=== PATIENT | female | born 1980 | race Caucasian/White ===

== ENCOUNTER 2016-09-22 16:07 | Inpatient (IN) | payer OTHER ==
[2016-09-23 18:22] VITALS: BMI 29.2
[2016-09-23] MEDS: Gabapentin 300 MG CAP PO SCH (20:12)
[2016-09-23] MEDS: HYDROcodone/Acetaminophen 10/325 mg Tablet PO PRN (20:22)
[2016-09-23] MEDS: oxyCODONE ER 20 MG TAB PO SCH (21:00)
[2016-09-23] MEDS: oxyCODONE ER 10 MG TAB PO SCH (21:02)
[2016-09-24] MEDS: HYDROcodone/Acetaminophen 10/325 mg Tablet PO PRN ×2 (06:18→15:13)
[2016-09-24] MEDS ORDERED: LIOTHYRONINE SODIUM 10 MCG PO SCH (09:00)
[2016-09-24] MEDS: oxyCODONE ER 10 MG TAB PO SCH ×2 (09:27→21:02)
[2016-09-24] MEDS: oxyCODONE ER 20 MG TAB PO SCH ×2 (09:29→21:01)
[2016-09-24] MEDS: FLUoxetine HCl 10 MG CAP PO SCH (09:30)
[2016-09-24] MEDS: Gabapentin 300 MG CAP PO SCH ×3 (09:30→21:01)
[2016-09-24] MEDS: Levothyroxine Sodium 88 MCG TAB PO SCH (09:31)
[2016-09-24] MEDS ORDERED: LIOTHYRONINE SODIUM PO SCH (11:00)
[2016-09-24] MEDS: Cyclobenzaprine 10 MG TAB PO PRN ×2 (11:57→23:07)
[2016-09-24] MEDS: Enoxaparin Sodium 40 MG/0.4 ML SYRINGE SC SCH (17:49)
[2016-09-24] MEDS: Diazepam 5 MG TAB PO PRN (18:18)
[2016-09-25] MEDS: HYDROcodone/Acetaminophen 10/325 mg Tablet PO PRN ×3 (01:37→18:03)
[2016-09-25] MEDS: Cyclobenzaprine 10 MG TAB PO PRN ×3 (05:56→23:21)
[2016-09-25] MEDS: LIOTHYRONINE SODIUM PO SCH (05:56)
[2016-09-25] MEDS: Diazepam 5 MG TAB PO PRN (07:17)
[2016-09-25] MEDS: Docusate 100 MG CAP PO SCH (07:17)
[2016-09-25] MEDS: FLUoxetine HCl 10 MG CAP PO SCH (08:41)
[2016-09-25] MEDS: oxyCODONE ER 10 MG TAB PO SCH ×2 (08:42→20:58)
[2016-09-25] MEDS: Gabapentin 300 MG CAP PO SCH ×3 (08:42→20:58)
[2016-09-25] MEDS: Levothyroxine Sodium 88 MCG TAB PO SCH (08:42)
[2016-09-25] MEDS: oxyCODONE ER 20 MG TAB PO SCH ×2 (08:43→21:00)
[2016-09-25] MEDS: Enoxaparin Sodium 40 MG/0.4 ML SYRINGE SC SCH (18:04)
[2016-09-26] MEDS: HYDROcodone/Acetaminophen 10/325 mg Tablet PO PRN ×4 (00:06→17:50)
[2016-09-26] MEDS: LIOTHYRONINE SODIUM PO SCH (06:09)
[2016-09-26 07:28] LABS: #Basophils 0.1 thou/uL (0.0-0.2); #Eosinphils 0.2 thou/uL (0.0-0.7); #Lymphocytes 1.9 thou/uL (1.20-3.40); #Monocytes 0.5 thou/uL (0.11-0.59); %Basophils 0.8 % (0.0-1.0); %Eosinophils 2.3 % (0.0-10.0); %Lymphocytes 28.3 % (21.0-51.0); %Neutrophils 60.6 % (42.0-75.0); Hemoglobin 10.9 g/dL (12.0-16.0); Mean Corpuscular HGB CONC 30.9 g/dL (32.0-36.0); Mean Corpuscular Hemoglobin 26.6 pg (27.0-31.0); Mean Corpuscular Volume 85.8 fl (81.0-99.0); Mean Platelet Volume 7.4 fL (7.4-10.4); Platelet Count 273 thou/uL (130-400); RBC Distribution Width 13.7 % (11.5-14.5); Red Blood Cell (RBC) Count 4.12 mill/uL (4.20-5.40); White Blood Cell (WBC) Count 6.7 thou/uL (4.8-10.8)
[2016-09-26 07:35] LABS: ALT (SGPT) 89 U/L (8-55); AST (SGOT) 34 U/L (5-34); Albumin 3.2 g/dL (3.5-5.0); Alkaline Phosphatase 104 U/L (40-150); Anion Gap 14 mmol/L (10-20); BUN (Urea Nitrogen) 9 mg/dL (7.0-18.7); Bilirubin, Total 0.4 mg/dL (0.2-1.2); Calc. Creatinine Clearance 149 mL/min (70-130); Calcium 8.6 mg/dL (7.8-10.44); Carbon Dioxide 30 mmol/L (22-29); Chloride 98 mmol/L (98-107); Estimated GFR-MDRD Greater than 90; Globulin 3.1 g/dL (2.4-3.5); Glucose 97 mg/dL (70-105); Potassium 4.6 mmol/L (3.5-5.1); Protein, Total 6.3 g/dL (6.0-8.3); Sodium 137 mmol/L (136-145)
[2016-09-26] MEDS: Docusate 100 MG CAP PO SCH (07:47)
[2016-09-26] MEDS: Cyclobenzaprine 10 MG TAB PO PRN ×2 (07:47→21:42)
[2016-09-26] MEDS: FLUoxetine HCl 10 MG CAP PO SCH (08:55)
[2016-09-26] MEDS: oxyCODONE ER 20 MG TAB PO SCH ×2 (08:55→20:55)
[2016-09-26] MEDS: Levothyroxine Sodium 88 MCG TAB PO SCH (08:56)
[2016-09-26] MEDS: Gabapentin 300 MG CAP PO SCH ×3 (08:56→20:55)
[2016-09-26] MEDS: oxyCODONE ER 10 MG TAB PO SCH ×2 (08:56→20:56)
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
[2016-09-26] MEDS: Diazepam 5 MG TAB PO PRN (14:52)
[2016-09-26] MEDS: Enoxaparin Sodium 40 MG/0.4 ML SYRINGE SC SCH (17:48)
[2016-09-27] MEDS: HYDROcodone/Acetaminophen 10/325 mg Tablet PO PRN ×4 (00:06→18:14)
[2016-09-27] MEDS: Diazepam 5 MG TAB PO PRN ×2 (05:27→22:54)
[2016-09-27] MEDS: LIOTHYRONINE SODIUM PO SCH (05:31)
[2016-09-27] MEDS: oxyCODONE ER 10 MG TAB PO SCH ×2 (08:26→21:08)
[2016-09-27] MEDS: Levothyroxine Sodium 88 MCG TAB PO SCH (08:26)
[2016-09-27] MEDS: oxyCODONE ER 20 MG TAB PO SCH ×2 (08:27→21:07)
[2016-09-27] MEDS: Polyethylene Glycol 3350 17 GM Packet PO SCH (08:28)
[2016-09-27] MEDS: Gabapentin 300 MG CAP PO SCH ×3 (08:28→21:06)
[2016-09-27] MEDS: FLUoxetine HCl 10 MG CAP PO SCH (08:28)
[2016-09-27] MEDS: Docusate 100 MG CAP PO SCH (08:28)
[2016-09-27] MEDS: Cyclobenzaprine 10 MG TAB PO PRN (11:03)
[2016-09-27] MEDS: Bisacodyl 10 MG SUPP PR PRN ×2 (14:11→22:26)
[2016-09-27] MEDS: Ondansetron ODT 4 MG TAB PO PRN (14:11)
[2016-09-27] MEDS ORDERED: SUMAtriptan Succinate 6 MG/0.5 ML VIAL ONE (16:33)
[2016-09-27] MEDS: SUMAtriptan Succinate 6 MG/0.5 ML VIAL SC PRN (16:40)
[2016-09-27] MEDS: Enoxaparin Sodium 40 MG/0.4 ML SYRINGE SC SCH (17:59)
[2016-09-28] MEDS: HYDROcodone/Acetaminophen 10/325 mg Tablet PO PRN ×3 (02:02→18:11)
[2016-09-28] MEDS: Cyclobenzaprine 10 MG TAB PO PRN ×2 (05:25→13:28)
[2016-09-28] MEDS: LIOTHYRONINE SODIUM PO SCH (05:26)
[2016-09-28] MEDS ORDERED: SUMAtriptan Succinate 6 MG/0.5 ML VIAL ONE (05:56)
[2016-09-28] MEDS: SUMAtriptan Succinate 6 MG/0.5 ML VIAL SC PRN (05:59)
[2016-09-28] MEDS: Levothyroxine Sodium 88 MCG TAB PO SCH (09:30)
[2016-09-28] MEDS: FLUoxetine HCl 10 MG CAP PO SCH (09:30)
[2016-09-28] MEDS: Gabapentin 300 MG CAP PO SCH ×3 (09:31→21:43)
[2016-09-28] MEDS: Docusate 100 MG CAP PO SCH (09:31)
[2016-09-28] MEDS: oxyCODONE ER 10 MG TAB PO SCH ×2 (09:32→21:45)
[2016-09-28] MEDS: oxyCODONE ER 20 MG TAB PO SCH ×2 (09:34→21:43)
[2016-09-28] MEDS: Polyethylene Glycol 3350 17 GM Packet PO SCH (09:35)
[2016-09-28] MEDS: Milk Of Magnesia 30 ML UDCUP PO PRN (11:54)
[2016-09-28] MEDS: Diazepam 5 MG TAB PO PRN (13:28)
[2016-09-28] MEDS ORDERED: Magnesium Citrate 300 ML BOT PO PRN (17:28)
[2016-09-28] MEDS: Enoxaparin Sodium 40 MG/0.4 ML SYRINGE SC SCH (18:11)
[2016-09-29] MEDS: HYDROcodone/Acetaminophen 10/325 mg Tablet PO PRN ×2 (03:03→14:28)
[2016-09-29] MEDS: LIOTHYRONINE SODIUM PO SCH (05:52)
[2016-09-29] MEDS: oxyCODONE ER 10 MG TAB PO SCH ×2 (08:14→21:14)
[2016-09-29] MEDS: oxyCODONE ER 20 MG TAB PO SCH ×2 (08:16→21:13)
[2016-09-29] MEDS: Gabapentin 300 MG CAP PO SCH ×3 (08:23→21:12)
[2016-09-29] MEDS: Diazepam 5 MG TAB PO PRN ×2 (08:26→17:57)
[2016-09-29] MEDS: Cyclobenzaprine 10 MG TAB PO PRN ×2 (08:26→17:57)
[2016-09-29] MEDS: FLUoxetine HCl 10 MG CAP PO SCH (08:27)
[2016-09-29] MEDS: Docusate 100 MG CAP PO SCH (14:29)
[2016-09-29] MEDS: Polyethylene Glycol 3350 17 GM Packet PO SCH (14:44)
[2016-09-29] MEDS: Levothyroxine Sodium 88 MCG TAB PO SCH (14:47)
[2016-09-29] MEDS: Enoxaparin Sodium 40 MG/0.4 ML SYRINGE SC SCH (17:49)
[2016-09-30] MEDS: HYDROcodone/Acetaminophen 10/325 mg Tablet PO PRN ×2 (00:25→13:39)
[2016-09-30] MEDS: LIOTHYRONINE SODIUM PO SCH (05:36)
[2016-09-30] MEDS: Levothyroxine Sodium 88 MCG TAB PO SCH (05:44)
[2016-09-30] MEDS: FLUoxetine HCl 10 MG CAP PO SCH (08:36)
[2016-09-30] MEDS: Gabapentin 300 MG CAP PO SCH ×3 (08:37→21:50)
[2016-09-30] MEDS: oxyCODONE ER 20 MG TAB PO SCH ×2 (08:37→21:51)
[2016-09-30] MEDS: Docusate 100 MG CAP PO SCH (08:37)
[2016-09-30] MEDS: Polyethylene Glycol 3350 17 GM Packet PO SCH (08:37)
[2016-09-30] MEDS: oxyCODONE ER 10 MG TAB PO SCH ×2 (08:38→21:50)
[2016-09-30] MEDS: Cyclobenzaprine 10 MG TAB PO PRN (13:39)
[2016-09-30] MEDS: Enoxaparin Sodium 40 MG/0.4 ML SYRINGE SC SCH (18:26)
[2016-09-30] MEDS: Diazepam 5 MG TAB PO PRN (22:00)
[2016-10-01] MEDS: Milk Of Magnesia 30 ML UDCUP PO PRN ×2 (00:39→21:17)
[2016-10-01] MEDS: Cyclobenzaprine 10 MG TAB PO PRN ×2 (03:38→13:32)
[2016-10-01] MEDS: HYDROcodone/Acetaminophen 10/325 mg Tablet PO PRN ×2 (03:38→13:32)
[2016-10-01] MEDS: Levothyroxine Sodium 88 MCG TAB PO SCH (05:51)
[2016-10-01] MEDS: LIOTHYRONINE SODIUM PO SCH (05:51)
[2016-10-01] MEDS: Polyethylene Glycol 3350 17 GM Packet PO SCH (09:16)
[2016-10-01] MEDS: FLUoxetine HCl 10 MG CAP PO SCH (09:16)
[2016-10-01] MEDS: oxyCODONE ER 10 MG TAB PO SCH ×2 (09:17→21:18)
[2016-10-01] MEDS: Docusate 100 MG CAP PO SCH (09:17)
[2016-10-01] MEDS: Gabapentin 300 MG CAP PO SCH ×3 (09:17→21:17)
[2016-10-01] MEDS: oxyCODONE ER 20 MG TAB PO SCH ×2 (09:19→21:17)
[2016-10-01] MEDS: Diazepam 5 MG TAB PO PRN (16:43)
[2016-10-01] MEDS: Enoxaparin Sodium 40 MG/0.4 ML SYRINGE SC SCH (17:29)
[2016-10-02] MEDS: Cyclobenzaprine 10 MG TAB PO PRN ×2 (04:06→14:07)
[2016-10-02] MEDS: HYDROcodone/Acetaminophen 10/325 mg Tablet PO PRN ×2 (04:06→14:07)
[2016-10-02] MEDS: Levothyroxine Sodium 88 MCG TAB PO SCH (06:02)
[2016-10-02] MEDS: LIOTHYRONINE SODIUM PO SCH (06:02)
[2016-10-02] MEDS: Docusate 100 MG CAP PO SCH (08:31)
[2016-10-02] MEDS: Polyethylene Glycol 3350 17 GM Packet PO SCH (08:31)
[2016-10-02] MEDS: FLUoxetine HCl 10 MG CAP PO SCH (08:32)
[2016-10-02] MEDS: oxyCODONE ER 10 MG TAB PO SCH ×2 (08:33→21:31)
[2016-10-02] MEDS: Gabapentin 300 MG CAP PO SCH ×3 (08:33→21:29)
[2016-10-02] MEDS: oxyCODONE ER 20 MG TAB PO SCH ×2 (08:34→21:30)
[2016-10-02] MEDS: Enoxaparin Sodium 40 MG/0.4 ML SYRINGE SC SCH (17:47)
[2016-10-02] MEDS: Bisacodyl 10 MG SUPP PR PRN (20:23)
[2016-10-03] MEDS: HYDROcodone/Acetaminophen 10/325 mg Tablet PO PRN ×2 (01:50→12:25)
[2016-10-03] MEDS: Cyclobenzaprine 10 MG TAB PO PRN ×2 (01:50→12:26)
[2016-10-03] MEDS: LIOTHYRONINE SODIUM PO SCH (06:02)
[2016-10-03] MEDS: Levothyroxine Sodium 88 MCG TAB PO SCH (06:02)
[2016-10-03] MEDS: FLUoxetine HCl 10 MG CAP PO SCH (09:44)
[2016-10-03] MEDS: Docusate 100 MG CAP PO SCH (09:44)
[2016-10-03] MEDS: oxyCODONE ER 20 MG TAB PO SCH ×2 (09:45→21:09)
[2016-10-03] MEDS: Gabapentin 300 MG CAP PO SCH ×3 (09:45→21:06)
[2016-10-03] MEDS: oxyCODONE ER 10 MG TAB PO SCH ×2 (09:46→21:06)
[2016-10-03] MEDS: Polyethylene Glycol 3350 17 GM Packet PO SCH (09:47)
[2016-10-03] MEDS: Enoxaparin Sodium 40 MG/0.4 ML SYRINGE SC SCH (18:11)
[2016-10-04] MEDS: HYDROcodone/Acetaminophen 10/325 mg Tablet PO PRN ×3 (04:09→23:46)
[2016-10-04] MEDS: Cyclobenzaprine 10 MG TAB PO PRN ×3 (04:10→23:45)
[2016-10-04] MEDS: Levothyroxine Sodium 88 MCG TAB PO SCH (05:43)
[2016-10-04] MEDS: LIOTHYRONINE SODIUM PO SCH (05:44)
[2016-10-04] MEDS: Docusate 100 MG CAP PO SCH (08:41)
[2016-10-04] MEDS: oxyCODONE ER 20 MG TAB PO SCH ×2 (08:41→22:02)
[2016-10-04] MEDS: FLUoxetine HCl 10 MG CAP PO SCH (08:41)
[2016-10-04] MEDS: oxyCODONE ER 10 MG TAB PO SCH ×2 (08:42→21:58)
[2016-10-04] MEDS: Polyethylene Glycol 3350 17 GM Packet PO SCH (08:43)
[2016-10-04] MEDS: Gabapentin 300 MG CAP PO SCH ×3 (08:43→21:58)
[2016-10-04] MEDS: Enoxaparin Sodium 40 MG/0.4 ML SYRINGE SC SCH (18:08)
[2016-10-05] MEDS: Acetaminophen 500 MG TAB PO PRN (05:20)
[2016-10-05] MEDS: LIOTHYRONINE SODIUM PO SCH (05:20)
[2016-10-05] MEDS: Levothyroxine Sodium 88 MCG TAB PO SCH (05:20)
[2016-10-05] MEDS: oxyCODONE ER 10 MG TAB PO SCH ×2 (08:49→21:32)
[2016-10-05] MEDS: Polyethylene Glycol 3350 17 GM Packet PO SCH (08:49)
[2016-10-05] MEDS: FLUoxetine HCl 10 MG CAP PO SCH (08:49)
[2016-10-05] MEDS: Gabapentin 300 MG CAP PO SCH ×3 (08:50→21:31)
[2016-10-05] MEDS: oxyCODONE ER 20 MG TAB PO SCH ×2 (08:50→21:35)
[2016-10-05] MEDS: Docusate 100 MG CAP PO SCH (08:51)
[2016-10-05] MEDS: HYDROcodone/Acetaminophen 10/325 mg Tablet PO PRN ×2 (13:31→20:50)
[2016-10-05] MEDS: Diazepam 5 MG TAB PO PRN (13:31)
[2016-10-05] MEDS: Cyclobenzaprine 10 MG TAB PO PRN ×2 (13:31→23:58)
[2016-10-05] MEDS: Enoxaparin Sodium 40 MG/0.4 ML SYRINGE SC SCH (18:20)
[2016-10-06] MEDS: LIOTHYRONINE SODIUM PO SCH (06:04)
[2016-10-06] MEDS: Levothyroxine Sodium 88 MCG TAB PO SCH (06:04)
[2016-10-06] MEDS: Polyethylene Glycol 3350 17 GM Packet PO SCH (08:49)
[2016-10-06] MEDS: FLUoxetine HCl 10 MG CAP PO SCH (08:49)
[2016-10-06] MEDS: Gabapentin 300 MG CAP PO SCH ×3 (08:50→21:20)
[2016-10-06] MEDS: Docusate 100 MG CAP PO SCH (08:50)
[2016-10-06] MEDS: oxyCODONE ER 20 MG TAB PO SCH ×2 (08:51→21:20)
[2016-10-06] MEDS: oxyCODONE ER 10 MG TAB PO SCH ×2 (08:52→21:21)
[2016-10-06] MEDS ORDERED: Sodium Chloride 0.9% 0 ML ONE (11:19)
[2016-10-06] MEDS: Diazepam 5 MG TAB PO PRN (12:20)
[2016-10-06] MEDS: HYDROcodone/Acetaminophen 10/325 mg Tablet PO PRN (12:20)
[2016-10-06] MEDS: Cyclobenzaprine 10 MG TAB PO PRN (12:21)
[2016-10-06] MEDS: Enoxaparin Sodium 40 MG/0.4 ML SYRINGE SC SCH (18:44)
[2016-10-07] MEDS: HYDROcodone/Acetaminophen 10/325 mg Tablet PO PRN ×3 (01:43→23:52)
[2016-10-07] MEDS: Cyclobenzaprine 10 MG TAB PO PRN ×3 (01:43→23:52)
[2016-10-07] MEDS: LIOTHYRONINE SODIUM PO SCH (06:07)
[2016-10-07] MEDS: Levothyroxine Sodium 88 MCG TAB PO SCH (06:07)
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
[2016-10-07] MEDS: oxyCODONE ER 10 MG TAB PO SCH ×2 (10:12→21:06)
[2016-10-07] MEDS: oxyCODONE ER 20 MG TAB PO SCH ×2 (10:17→21:04)
[2016-10-07] MEDS: Gabapentin 300 MG CAP PO SCH ×3 (10:18→21:04)
[2016-10-07] MEDS: Docusate 100 MG CAP PO SCH (10:18)
[2016-10-07] MEDS: FLUoxetine HCl 10 MG CAP PO SCH (10:18)
[2016-10-07] MEDS: Polyethylene Glycol 3350 17 GM Packet PO SCH (10:19)
[2016-10-07] MEDS: Diazepam 5 MG TAB PO PRN ×2 (13:03→23:52)
[2016-10-07] MEDS ORDERED: Cephalexin 250 MG CAP PO SCH (18:00)
[2016-10-07] MEDS: Cephalexin 250 MG CAP PO SCH ×2 (19:01→23:52)
[2016-10-07] MEDS: Enoxaparin Sodium 40 MG/0.4 ML SYRINGE SC SCH (19:02)
[2016-10-08] MEDS: Levothyroxine Sodium 88 MCG TAB PO SCH (06:18)
[2016-10-08] MEDS: Cephalexin 250 MG CAP PO SCH ×4 (06:18→23:38)
[2016-10-08] MEDS: LIOTHYRONINE SODIUM PO SCH (06:19)
[2016-10-08] MEDS: HYDROcodone/Acetaminophen 10/325 mg Tablet PO PRN ×3 (06:36→23:36)
[2016-10-08] MEDS: oxyCODONE ER 20 MG TAB PO SCH ×2 (08:25→20:42)
[2016-10-08] MEDS: oxyCODONE ER 10 MG TAB PO SCH ×2 (08:26→20:40)
[2016-10-08] MEDS: Gabapentin 300 MG CAP PO SCH ×3 (08:27→20:40)
[2016-10-08] MEDS: Docusate 100 MG CAP PO SCH (08:27)
[2016-10-08] MEDS: FLUoxetine HCl 10 MG CAP PO SCH (08:27)
[2016-10-08] MEDS: Polyethylene Glycol 3350 17 GM Packet PO SCH (08:27)
[2016-10-08] MEDS: Cyclobenzaprine 10 MG TAB PO PRN ×2 (12:28→23:38)
[2016-10-08] MEDS: Diazepam 5 MG TAB PO PRN ×2 (12:28→23:38)
[2016-10-08] MEDS: Enoxaparin Sodium 40 MG/0.4 ML SYRINGE SC SCH (17:49)
[2016-10-09] MEDS: LIOTHYRONINE SODIUM PO SCH (06:08)
[2016-10-09] MEDS: Levothyroxine Sodium 88 MCG TAB PO SCH (06:08)
[2016-10-09] MEDS: Cephalexin 250 MG CAP PO SCH ×4 (06:08→23:57)
[2016-10-09] MEDS: HYDROcodone/Acetaminophen 10/325 mg Tablet PO PRN ×4 (06:09→23:58)
[2016-10-09] MEDS: Docusate 100 MG CAP PO SCH (09:38)
[2016-10-09] MEDS: FLUoxetine HCl 10 MG CAP PO SCH (09:38)
[2016-10-09] MEDS: oxyCODONE ER 10 MG TAB PO SCH ×2 (09:39→20:50)
[2016-10-09] MEDS: Gabapentin 300 MG CAP PO SCH ×3 (09:39→20:50)
[2016-10-09] MEDS: oxyCODONE ER 20 MG TAB PO SCH ×2 (09:42→20:51)
[2016-10-09] MEDS: Polyethylene Glycol 3350 17 GM Packet PO SCH (09:42)
[2016-10-09] MEDS: Cyclobenzaprine 10 MG TAB PO PRN ×2 (12:15→23:57)
[2016-10-09] MEDS: Diazepam 5 MG TAB PO PRN ×2 (12:15→23:58)
[2016-10-09] MEDS: Enoxaparin Sodium 40 MG/0.4 ML SYRINGE SC SCH (17:57)
[2016-10-10] MEDS: LIOTHYRONINE SODIUM PO SCH (06:01)
[2016-10-10] MEDS: HYDROcodone/Acetaminophen 10/325 mg Tablet PO PRN ×3 (06:02→23:51)
[2016-10-10] MEDS: Cephalexin 250 MG CAP PO SCH ×4 (06:02→23:53)
[2016-10-10] MEDS: Levothyroxine Sodium 88 MCG TAB PO SCH (06:02)
[2016-10-10] MEDS: oxyCODONE ER 10 MG TAB PO SCH ×2 (08:48→20:56)
[2016-10-10] MEDS: FLUoxetine HCl 10 MG CAP PO SCH (08:49)
[2016-10-10] MEDS: oxyCODONE ER 20 MG TAB PO SCH ×2 (08:49→20:54)
[2016-10-10] MEDS: Polyethylene Glycol 3350 17 GM Packet PO SCH (08:50)
[2016-10-10] MEDS: Gabapentin 300 MG CAP PO SCH ×3 (08:50→20:54)
[2016-10-10] MEDS: Docusate 100 MG CAP PO SCH (08:50)
[2016-10-10] MEDS: Cyclobenzaprine 10 MG TAB PO PRN ×2 (12:07→23:53)
[2016-10-10] MEDS: Diazepam 5 MG TAB PO PRN ×2 (12:07→23:53)
[2016-10-10] MEDS: Enoxaparin Sodium 40 MG/0.4 ML SYRINGE SC SCH (18:15)
[2016-10-11] MEDS: Cephalexin 250 MG CAP PO SCH ×3 (06:13→17:33)
[2016-10-11] MEDS: Levothyroxine Sodium 88 MCG TAB PO SCH (06:14)
[2016-10-11] MEDS: LIOTHYRONINE SODIUM PO SCH (06:14)
[2016-10-11] MEDS: HYDROcodone/Acetaminophen 10/325 mg Tablet PO PRN ×3 (06:15→17:59)
[2016-10-11] MEDS: oxyCODONE ER 10 MG TAB PO SCH ×2 (08:42→21:11)
[2016-10-11] MEDS: oxyCODONE ER 20 MG TAB PO SCH ×2 (08:43→21:10)
[2016-10-11] MEDS: FLUoxetine HCl 10 MG CAP PO SCH (08:45)
[2016-10-11] MEDS: Docusate 100 MG CAP PO SCH (08:46)
[2016-10-11] MEDS: Gabapentin 300 MG CAP PO SCH ×3 (08:46→21:10)
[2016-10-11] MEDS: Polyethylene Glycol 3350 17 GM Packet PO SCH (08:47)
[2016-10-11] MEDS: Diazepam 5 MG TAB PO PRN (11:53)
[2016-10-11] MEDS: Cyclobenzaprine 10 MG TAB PO PRN (11:58)
[2016-10-11] MEDS: Enoxaparin Sodium 40 MG/0.4 ML SYRINGE SC SCH (17:33)
[2016-10-12] MEDS: Diazepam 5 MG TAB PO PRN ×3 (00:01→23:11)
[2016-10-12] MEDS: HYDROcodone/Acetaminophen 10/325 mg Tablet PO PRN ×4 (00:01→23:09)
[2016-10-12] MEDS: Cyclobenzaprine 10 MG TAB PO PRN ×3 (00:01→23:12)
[2016-10-12] MEDS: Cephalexin 250 MG CAP PO SCH ×5 (00:01→23:09)
[2016-10-12] MEDS: Levothyroxine Sodium 88 MCG TAB PO SCH (05:59)
[2016-10-12] MEDS: LIOTHYRONINE SODIUM PO SCH (06:00)
[2016-10-12] MEDS: Polyethylene Glycol 3350 17 GM Packet PO SCH (09:13)
[2016-10-12] MEDS: Docusate 100 MG CAP PO SCH (09:13)
[2016-10-12] MEDS: Gabapentin 300 MG CAP PO SCH ×3 (09:14→21:05)
[2016-10-12] MEDS: FLUoxetine HCl 10 MG CAP PO SCH (09:14)
[2016-10-12] MEDS: oxyCODONE ER 20 MG TAB PO SCH ×2 (09:15→21:05)
[2016-10-12] MEDS: oxyCODONE ER 10 MG TAB PO SCH ×2 (09:16→21:04)
[2016-10-12] MEDS: Enoxaparin Sodium 40 MG/0.4 ML SYRINGE SC SCH (18:12)
[2016-10-12] MEDS: Zolpidem Tartrate 5 MG TAB PO SCH (22:18)
[2016-10-13] MEDS: Cephalexin 250 MG CAP PO SCH ×4 (05:55→23:07)
[2016-10-13] MEDS: Levothyroxine Sodium 88 MCG TAB PO SCH (05:55)
[2016-10-13] MEDS: LIOTHYRONINE SODIUM PO SCH (05:56)
[2016-10-13] MEDS: oxyCODONE ER 20 MG TAB PO SCH ×2 (11:00→21:52)
[2016-10-13] MEDS: FLUoxetine HCl 10 MG CAP PO SCH (11:00)
[2016-10-13] MEDS: Gabapentin 300 MG CAP PO SCH ×3 (11:01→21:50)
[2016-10-13] MEDS: Polyethylene Glycol 3350 17 GM Packet PO SCH (11:02)
[2016-10-13] MEDS: oxyCODONE ER 10 MG TAB PO SCH ×2 (11:02→21:51)
[2016-10-13] MEDS: Ondansetron ODT 4 MG TAB PO PRN (11:37)
[2016-10-13] MEDS: Docusate 100 MG CAP PO SCH (13:15)
[2016-10-13] MEDS: Diazepam 5 MG TAB PO PRN ×2 (13:16→23:07)
[2016-10-13] MEDS: Cyclobenzaprine 10 MG TAB PO PRN ×2 (13:16→23:07)
[2016-10-13] MEDS: HYDROcodone/Acetaminophen 10/325 mg Tablet PO PRN ×2 (13:17→23:08)
[2016-10-13] MEDS ORDERED: SUMAtriptan Succinate 6 MG/0.5 ML VIAL ONE ×2 (13:32→16:44)
[2016-10-13] MEDS: SUMAtriptan Succinate 6 MG/0.5 ML VIAL SC PRN ×2 (13:34→16:46)
--- NOTE | 2016-10-13 16:13 | RAD ---
LUMBAR SPINE THREE VIEWS: Date: 10-13-16 FINDINGS: The recent spine MRI report was reviewed. The patient has had a posterior fusion with pedicle screws that span L1 through L3. There is a compr ession burst type fracture of the L2 vertebral body. The disc spaces are all normal in height. There is curvature of the spine convex left. The SI joints are symmetrical. An IUD is noted in place. IMPRESSION: Expected post-operative changes. POS: HOME
[2016-10-13] MEDS: Enoxaparin Sodium 40 MG/0.4 ML SYRINGE SC SCH (18:40)
[2016-10-13] MEDS: Zolpidem Tartrate 5 MG TAB PO SCH (21:50)
[2016-10-14] MEDS ORDERED: Cephalexin 250 MG CAP ONE (04:47)
[2016-10-14] MEDS: Cephalexin 250 MG CAP PO SCH ×4 (05:37→23:01)
[2016-10-14] MEDS: LIOTHYRONINE SODIUM PO SCH (05:38)
[2016-10-14] MEDS: Levothyroxine Sodium 88 MCG TAB PO SCH (05:38)
[2016-10-14] MEDS: Docusate 100 MG CAP PO SCH (08:40)
[2016-10-14] MEDS: oxyCODONE ER 20 MG TAB PO SCH ×2 (08:40→21:53)
[2016-10-14] MEDS: oxyCODONE ER 10 MG TAB PO SCH ×2 (08:41→21:51)
[2016-10-14] MEDS: FLUoxetine HCl 10 MG CAP PO SCH (08:41)
[2016-10-14] MEDS: Gabapentin 300 MG CAP PO SCH ×3 (08:42→21:51)
[2016-10-14] MEDS: Ondansetron ODT 4 MG TAB PO PRN (10:00)
[2016-10-14] MEDS: HYDROcodone/Acetaminophen 10/325 mg Tablet PO PRN ×3 (10:00→23:02)
[2016-10-14] MEDS: Diazepam 5 MG TAB PO PRN ×3 (10:01→23:01)
[2016-10-14] MEDS: Cyclobenzaprine 10 MG TAB PO PRN ×3 (10:01→23:02)
[2016-10-14] MEDS: Polyethylene Glycol 3350 17 GM Packet PO SCH (12:30)
[2016-10-14] MEDS: SUMAtriptan Succinate 6 MG/0.5 ML VIAL SC PRN (12:30)
[2016-10-14] MEDS: Enoxaparin Sodium 40 MG/0.4 ML SYRINGE SC SCH (18:38)
[2016-10-14] MEDS: Zolpidem Tartrate 5 MG TAB PO SCH (21:50)
[2016-10-15] MEDS: Cephalexin 250 MG CAP PO SCH ×4 (05:38→23:07)
[2016-10-15] MEDS: LIOTHYRONINE SODIUM PO SCH (05:38)
[2016-10-15] MEDS: Levothyroxine Sodium 88 MCG TAB PO SCH (05:38)
[2016-10-15] MEDS: oxyCODONE ER 10 MG TAB PO SCH ×2 (08:43→21:03)
[2016-10-15] MEDS: Polyethylene Glycol 3350 17 GM Packet PO SCH (08:43)
[2016-10-15] MEDS: FLUoxetine HCl 10 MG CAP PO SCH (08:44)
[2016-10-15] MEDS: Gabapentin 300 MG CAP PO SCH ×3 (08:44→21:03)
[2016-10-15] MEDS: Docusate 100 MG CAP PO SCH (08:44)
[2016-10-15] MEDS: oxyCODONE ER 20 MG TAB PO SCH ×2 (08:45→21:02)
[2016-10-15] MEDS: HYDROcodone/Acetaminophen 10/325 mg Tablet PO PRN ×2 (12:16→23:09)
[2016-10-15] MEDS: Diazepam 5 MG TAB PO PRN ×2 (12:16→23:08)
[2016-10-15] MEDS: Cyclobenzaprine 10 MG TAB PO PRN ×2 (12:17→23:08)
[2016-10-15] MEDS: SUMAtriptan Succinate 6 MG/0.5 ML VIAL SC PRN (14:38)
[2016-10-15] MEDS: Enoxaparin Sodium 40 MG/0.4 ML SYRINGE SC SCH (18:51)
[2016-10-15] MEDS: Nystatin Powder 15 GM BOT TOP PRN (21:04)
[2016-10-15] MEDS: Zolpidem Tartrate 5 MG TAB PO SCH (23:08)
[2016-10-16] MEDS: Cephalexin 250 MG CAP PO SCH ×4 (05:52→22:10)
[2016-10-16] MEDS: Levothyroxine Sodium 88 MCG TAB PO SCH (05:53)
[2016-10-16] MEDS: LIOTHYRONINE SODIUM PO SCH (05:53)
[2016-10-16] MEDS: Gabapentin 300 MG CAP PO SCH ×3 (12:05→21:27)
[2016-10-16] MEDS: FLUoxetine HCl 10 MG CAP PO SCH (12:05)
[2016-10-16] MEDS: Docusate 100 MG CAP PO SCH (12:05)
[2016-10-16] MEDS: oxyCODONE ER 20 MG TAB PO SCH ×2 (12:06→21:24)
[2016-10-16] MEDS: oxyCODONE ER 10 MG TAB PO SCH ×2 (12:07→21:26)
[2016-10-16] MEDS: Polyethylene Glycol 3350 17 GM Packet PO SCH (12:11)
[2016-10-16] MEDS: HYDROcodone/Acetaminophen 10/325 mg Tablet PO PRN ×2 (14:44→22:12)
[2016-10-16] MEDS: Cyclobenzaprine 10 MG TAB PO PRN ×2 (14:45→22:10)
[2016-10-16] MEDS: Diazepam 5 MG TAB PO PRN ×2 (14:45→22:10)
[2016-10-16] MEDS: Enoxaparin Sodium 40 MG/0.4 ML SYRINGE SC SCH (18:03)
[2016-10-16] MEDS: Nystatin Powder 15 GM BOT TOP PRN (18:07)
[2016-10-16] MEDS: Zolpidem Tartrate 5 MG TAB PO SCH (22:12)
[2016-10-17] MEDS: Cephalexin 250 MG CAP PO SCH ×3 (05:45→18:13)
[2016-10-17] MEDS: Levothyroxine Sodium 88 MCG TAB PO SCH (05:45)
[2016-10-17] MEDS: LIOTHYRONINE SODIUM PO SCH (05:45)
[2016-10-17] MEDS: Polyethylene Glycol 3350 17 GM Packet PO SCH (08:15)
[2016-10-17] MEDS: Multivitamin W/ Minerals 1 TAB PO SCH (08:15)
[2016-10-17] MEDS: Gabapentin 300 MG CAP PO SCH ×3 (08:15→21:53)
[2016-10-17] MEDS: oxyCODONE ER 10 MG TAB PO SCH ×2 (08:16→21:54)
[2016-10-17] MEDS: oxyCODONE ER 20 MG TAB PO SCH ×2 (08:17→21:55)
[2016-10-17] MEDS: Docusate 100 MG CAP PO SCH (08:18)
[2016-10-17] MEDS: Ferrous Sulfate 325 MG TAB PO SCH (08:18)
[2016-10-17] MEDS: Cholecalciferol (Vitamin D3) 400 UNITS TAB PO SCH (08:24)
[2016-10-17] MEDS: FLUoxetine HCl 10 MG CAP PO SCH (08:25)
[2016-10-17] MEDS: Diazepam 5 MG TAB PO PRN ×2 (11:24→23:50)
[2016-10-17] MEDS: HYDROcodone/Acetaminophen 10/325 mg Tablet PO PRN ×2 (11:24→23:51)
[2016-10-17] MEDS: Cyclobenzaprine 10 MG TAB PO PRN ×2 (11:25→23:50)
[2016-10-17] MEDS: Enoxaparin Sodium 40 MG/0.4 ML SYRINGE SC SCH (18:14)
[2016-10-17] MEDS ORDERED: Cephalexin 250 MG CAP PO SCH (18:15)
[2016-10-17] MEDS: Zolpidem Tartrate 5 MG TAB PO SCH (23:51)
[2016-10-17] MEDS: Nystatin Powder 15 GM BOT TOP PRN (23:53)
[2016-10-18] MEDS: Levothyroxine Sodium 88 MCG TAB PO SCH (05:55)
[2016-10-18] MEDS: LIOTHYRONINE SODIUM PO SCH (05:55)
[2016-10-18] MEDS: Ferrous Sulfate 325 MG TAB PO SCH (08:03)
[2016-10-18] MEDS: FLUoxetine HCl 10 MG CAP PO SCH (08:04)
[2016-10-18] MEDS: Docusate 100 MG CAP PO SCH (08:04)
[2016-10-18] MEDS: Gabapentin 300 MG CAP PO SCH ×3 (08:04→21:06)
[2016-10-18] MEDS: Cholecalciferol (Vitamin D3) 400 UNITS TAB PO SCH (08:05)
[2016-10-18] MEDS: oxyCODONE ER 20 MG TAB PO SCH ×2 (08:06→21:07)
[2016-10-18] MEDS: Multivitamin W/ Minerals 1 TAB PO SCH (08:06)
[2016-10-18] MEDS: oxyCODONE ER 10 MG TAB PO SCH ×2 (08:07→21:08)
[2016-10-18] MEDS: Polyethylene Glycol 3350 17 GM Packet PO SCH (08:07)
[2016-10-18 08:48] LABS: ALT (SGPT) 47 U/L (8-55); AST (SGOT) 34 U/L (5-34); Albumin 3.2 g/dL (3.5-5.0); Alkaline Phosphatase 126 U/L (40-150); Anion Gap 16 mmol/L (10-20); BUN (Urea Nitrogen) 4 mg/dL (7.0-18.7); Bilirubin, Total 0.3 mg/dL (0.2-1.2); Calc. Creatinine Clearance 141 mL/min (70-130); Calcium 8.9 mg/dL (7.8-10.44); Carbon Dioxide 26 mmol/L (22-29); Chloride 102 mmol/L (98-107); Estimated GFR-MDRD Greater than 90; Globulin 3.1 g/dL (2.4-3.5); Glucose 173 mg/dL (70-105); Potassium 3.7 mmol/L (3.5-5.1); Protein, Total 6.3 g/dL (6.0-8.3); Sodium 140 mmol/L (136-145)
[2016-10-18 09:03] LABS: #Eosinphils 0.2 thou/uL (0.0-0.7); #Lymphocytes 2.3 thou/uL (1.20-3.40); #Monocytes 0.4 thou/uL (0.11-0.59); #Neutrophils 2.2 thou/uL (1.40-6.50); %Basophils 0.6 % (0.0-1.0); %Eosinophils 3.6 % (0.0-10.0); %Lymphocytes 45.7 % (21.0-51.0); %Monocytes 7.3 % (0.0-10.0); %Neutrophils 42.8 % (42.0-75.0); Hemoglobin 10.5 g/dL (12.0-16.0); Mean Corpuscular HGB CONC 32.2 g/dL (32.0-36.0); Mean Corpuscular Hemoglobin 25.9 pg (27.0-31.0); Mean Corpuscular Volume 80.5 fl (81.0-99.0); Mean Platelet Volume 7.5 fL (7.4-10.4); Platelet Count 378 thou/uL (130-400); RBC Distribution Width 14.4 % (11.5-14.5); Red Blood Cell (RBC) Count 4.06 mill/uL (4.20-5.40); White Blood Cell (WBC) Count 5.1 thou/uL (4.8-10.8)
[2016-10-18] MEDS: HYDROcodone/Acetaminophen 10/325 mg Tablet PO PRN ×2 (12:07→23:10)
[2016-10-18] MEDS: Cyclobenzaprine 10 MG TAB PO PRN ×2 (12:07→23:09)
[2016-10-18] MEDS: Diazepam 5 MG TAB PO PRN ×2 (12:07→23:09)
[2016-10-18] MEDS: Enoxaparin Sodium 40 MG/0.4 ML SYRINGE SC SCH (18:30)
[2016-10-18] MEDS: Zolpidem Tartrate 5 MG TAB PO SCH (21:27)
[2016-10-19] MEDS: LIOTHYRONINE SODIUM PO SCH (05:37)
[2016-10-19] MEDS: Levothyroxine Sodium 88 MCG TAB PO SCH (05:37)
[2016-10-19] MEDS: Docusate 100 MG CAP PO SCH (07:59)
[2016-10-19] MEDS: FLUoxetine HCl 10 MG CAP PO SCH (08:00)
[2016-10-19] MEDS: Ferrous Sulfate 325 MG TAB PO SCH (08:01)
[2016-10-19] MEDS: oxyCODONE ER 20 MG TAB PO SCH ×2 (08:02→21:23)
[2016-10-19] MEDS: Gabapentin 300 MG CAP PO SCH ×3 (08:02→21:22)
[2016-10-19] MEDS: Multivitamin W/ Minerals 1 TAB PO SCH (08:03)
[2016-10-19] MEDS: oxyCODONE ER 10 MG TAB PO SCH ×2 (08:04→21:23)
[2016-10-19] MEDS: Polyethylene Glycol 3350 17 GM Packet PO SCH (08:05)
[2016-10-19] MEDS: Cholecalciferol (Vitamin D3) 400 UNITS TAB PO SCH (08:06)
[2016-10-19] MEDS ORDERED: SUMAtriptan Succinate 6 MG/0.5 ML VIAL ONE (09:02)
[2016-10-19] MEDS: SUMAtriptan Succinate 6 MG/0.5 ML VIAL SC PRN (09:07)
[2016-10-19] MEDS: HYDROcodone/Acetaminophen 10/325 mg Tablet PO PRN (12:25)
[2016-10-19] MEDS: Cyclobenzaprine 10 MG TAB PO PRN (12:26)
[2016-10-19] MEDS: Diazepam 5 MG TAB PO PRN (12:26)
[2016-10-19] MEDS ORDERED: Diazepam 5 MG TAB ONE (12:29)
[2016-10-19] MEDS: Enoxaparin Sodium 40 MG/0.4 ML SYRINGE SC SCH (17:32)
[2016-10-20] MEDS: Zolpidem Tartrate 5 MG TAB PO SCH ×2 (00:02→20:46)
[2016-10-20] MEDS: Cyclobenzaprine 10 MG TAB PO PRN ×3 (00:02→22:29)
[2016-10-20] MEDS: HYDROcodone/Acetaminophen 10/325 mg Tablet PO PRN ×3 (00:02→22:29)
[2016-10-20] MEDS: Diazepam 5 MG TAB PO PRN ×3 (00:02→22:29)
[2016-10-20] MEDS: LIOTHYRONINE SODIUM PO SCH (05:47)
[2016-10-20] MEDS: Levothyroxine Sodium 88 MCG TAB PO SCH (05:47)
[2016-10-20] MEDS: oxyCODONE ER 10 MG TAB PO SCH ×2 (08:34→20:47)
[2016-10-20] MEDS: oxyCODONE ER 20 MG TAB PO SCH ×2 (08:35→20:48)
[2016-10-20] MEDS: Polyethylene Glycol 3350 17 GM Packet PO SCH (08:36)
[2016-10-20] MEDS: FLUoxetine HCl 10 MG CAP PO SCH (08:36)
[2016-10-20] MEDS: Multivitamin W/ Minerals 1 TAB PO SCH (08:37)
[2016-10-20] MEDS: Gabapentin 300 MG CAP PO SCH ×3 (08:37→20:46)
[2016-10-20] MEDS: Docusate 100 MG CAP PO SCH (08:38)
[2016-10-20] MEDS: Ferrous Sulfate 325 MG TAB PO SCH (08:38)
[2016-10-20] MEDS: Cholecalciferol (Vitamin D3) 400 UNITS TAB PO SCH (08:40)
[2016-10-20] MEDS: Ondansetron ODT 4 MG TAB PO PRN ×2 (09:15→17:27)
[2016-10-20] MEDS: SUMAtriptan Succinate 6 MG/0.5 ML VIAL SC PRN ×2 (09:16→14:44)
[2016-10-20] MEDS: Enoxaparin Sodium 40 MG/0.4 ML SYRINGE SC SCH (17:29)
[2016-10-20] MEDS ORDERED: Benzonatate 100 MG CAP PO PRN (18:52)
[2016-10-20] MEDS: Nystatin Powder 15 GM BOT TOP PRN (20:54)
[2016-10-21] MEDS: LIOTHYRONINE SODIUM PO SCH (05:26)
[2016-10-21] MEDS: Levothyroxine Sodium 88 MCG TAB PO SCH (05:26)
[2016-10-21] MEDS: oxyCODONE ER 20 MG TAB PO SCH ×2 (08:59→20:49)
[2016-10-21] MEDS: oxyCODONE ER 10 MG TAB PO SCH ×2 (09:00→20:47)
[2016-10-21] MEDS: Gabapentin 300 MG CAP PO SCH ×3 (09:00→20:47)
[2016-10-21] MEDS: SUMAtriptan Succinate 6 MG/0.5 ML VIAL SC PRN (10:28)
[2016-10-21] MEDS: Ondansetron ODT 4 MG TAB PO PRN (10:34)
[2016-10-21] MEDS: HYDROcodone/Acetaminophen 10/325 mg Tablet PO PRN ×2 (11:51→22:38)
[2016-10-21] MEDS: Diazepam 5 MG TAB PO PRN ×2 (11:51→22:37)
[2016-10-21] MEDS: Cyclobenzaprine 10 MG TAB PO PRN ×2 (11:51→22:37)
[2016-10-21] MEDS ORDERED: Metoclopramide HCl 10 MG TAB PO PRN ×2 (12:06→13:45)
[2016-10-21] MEDS ORDERED: diphenhydrAMINE HCl 25 MG CAP PO PRN ×2 (12:07→13:47)
[2016-10-21] MEDS: Cholecalciferol (Vitamin D3) 400 UNITS TAB PO SCH (13:01)
[2016-10-21] MEDS: Docusate 100 MG CAP PO SCH (13:01)
[2016-10-21] MEDS: Ferrous Sulfate 325 MG TAB PO SCH (13:01)
[2016-10-21] MEDS: Polyethylene Glycol 3350 17 GM Packet PO SCH (13:02)
[2016-10-21] MEDS: Multivitamin W/ Minerals 1 TAB PO SCH (13:02)
[2016-10-21] MEDS: FLUoxetine HCl 10 MG CAP PO SCH (13:02)
[2016-10-21] MEDS ORDERED: Ketorolac Tromethamine 60 MG/2 ML VIAL ONE (16:08)
[2016-10-21] MEDS: Ketorolac Tromethamine 60 MG/2 ML VIAL IM PRN (16:12)
[2016-10-21] MEDS: Enoxaparin Sodium 40 MG/0.4 ML SYRINGE SC SCH (17:32)
[2016-10-21] MEDS: Zolpidem Tartrate 5 MG TAB PO SCH (20:47)
[2016-10-22] MEDS: Levothyroxine Sodium 88 MCG TAB PO SCH (06:35)
[2016-10-22] MEDS: Diazepam 5 MG TAB PO PRN ×3 (06:35→23:04)
[2016-10-22] MEDS: Cyclobenzaprine 10 MG TAB PO PRN ×3 (06:35→23:04)
[2016-10-22] MEDS: LIOTHYRONINE SODIUM PO SCH (06:36)
[2016-10-22] MEDS: HYDROcodone/Acetaminophen 10/325 mg Tablet PO PRN ×3 (06:36→23:04)
[2016-10-22] MEDS: Polyethylene Glycol 3350 17 GM Packet PO SCH (08:49)
[2016-10-22] MEDS: Docusate 100 MG CAP PO SCH (08:50)
[2016-10-22] MEDS: FLUoxetine HCl 10 MG CAP PO SCH (08:50)
[2016-10-22] MEDS: oxyCODONE ER 10 MG TAB PO SCH ×2 (08:51→20:55)
[2016-10-22] MEDS: oxyCODONE ER 20 MG TAB PO SCH ×2 (08:54→20:57)
[2016-10-22] MEDS: Ferrous Sulfate 325 MG TAB PO SCH (08:55)
[2016-10-22] MEDS: Multivitamin W/ Minerals 1 TAB PO SCH (08:55)
[2016-10-22] MEDS: Gabapentin 300 MG CAP PO SCH ×3 (08:56→20:55)
[2016-10-22] MEDS: Cholecalciferol (Vitamin D3) 400 UNITS TAB PO SCH (09:04)
[2016-10-22] MEDS: Enoxaparin Sodium 40 MG/0.4 ML SYRINGE SC SCH (17:39)
[2016-10-22] MEDS: Nystatin Powder 15 GM BOT TOP PRN (20:59)
[2016-10-22] MEDS: Zolpidem Tartrate 5 MG TAB PO SCH (21:01)
[2016-10-23] MEDS: LIOTHYRONINE SODIUM PO SCH (05:22)
[2016-10-23] MEDS: Levothyroxine Sodium 88 MCG TAB PO SCH (05:22)
[2016-10-23] MEDS: oxyCODONE ER 20 MG TAB PO SCH ×3 (08:00→20:53)
[2016-10-23] MEDS: oxyCODONE ER 10 MG TAB PO SCH ×2 (08:05→20:51)
[2016-10-23] MEDS: FLUoxetine HCl 10 MG CAP PO SCH (08:40)
[2016-10-23] MEDS: Gabapentin 300 MG CAP PO SCH ×3 (08:41→20:52)
[2016-10-23] MEDS: Multivitamin W/ Minerals 1 TAB PO SCH (08:41)
[2016-10-23] MEDS: Docusate 100 MG CAP PO SCH (08:42)
[2016-10-23] MEDS: Ferrous Sulfate 325 MG TAB PO SCH (08:43)
[2016-10-23] MEDS: Polyethylene Glycol 3350 17 GM Packet PO SCH (08:43)
[2016-10-23] MEDS: Cholecalciferol (Vitamin D3) 400 UNITS TAB PO SCH (08:43)
[2016-10-23] MEDS: Cyclobenzaprine 10 MG TAB PO PRN ×2 (10:50→22:56)
[2016-10-23] MEDS: Diazepam 5 MG TAB PO PRN ×2 (10:50→22:57)
[2016-10-23] MEDS: HYDROcodone/Acetaminophen 10/325 mg Tablet PO PRN ×2 (10:50→22:56)
[2016-10-23] MEDS: Enoxaparin Sodium 40 MG/0.4 ML SYRINGE SC SCH (18:31)
[2016-10-23] MEDS: Zolpidem Tartrate 5 MG TAB PO SCH (20:52)
[2016-10-24] MEDS ORDERED: Ketorolac Tromethamine 60 MG/2 ML VIAL ONE (00:26)
[2016-10-24] MEDS: Ketorolac Tromethamine 60 MG/2 ML VIAL IM PRN (00:32)
[2016-10-24] MEDS: Diazepam 5 MG TAB PO PRN ×3 (05:12→22:56)
[2016-10-24] MEDS: Cyclobenzaprine 10 MG TAB PO PRN ×3 (05:12→22:56)
[2016-10-24] MEDS: HYDROcodone/Acetaminophen 10/325 mg Tablet PO PRN ×3 (05:13→22:56)
[2016-10-24] MEDS: Levothyroxine Sodium 88 MCG TAB PO SCH (05:13)
[2016-10-24] MEDS: LIOTHYRONINE SODIUM PO SCH (05:14)
[2016-10-24] MEDS: Polyethylene Glycol 3350 17 GM Packet PO SCH (08:22)
[2016-10-24] MEDS: Ferrous Sulfate 325 MG TAB PO SCH (08:22)
[2016-10-24] MEDS: FLUoxetine HCl 10 MG CAP PO SCH (08:22)
[2016-10-24] MEDS: Docusate 100 MG CAP PO SCH (08:23)
[2016-10-24] MEDS: Multivitamin W/ Minerals 1 TAB PO SCH (08:23)
[2016-10-24] MEDS: oxyCODONE ER 20 MG TAB PO SCH ×2 (08:23→20:17)
[2016-10-24] MEDS: Gabapentin 300 MG CAP PO SCH ×3 (08:23→20:19)
[2016-10-24] MEDS: oxyCODONE ER 10 MG TAB PO SCH ×2 (08:24→20:19)
[2016-10-24] MEDS: Cholecalciferol (Vitamin D3) 400 UNITS TAB PO SCH (12:32)
[2016-10-24] MEDS: Ondansetron ODT 4 MG TAB PO PRN (13:16)
[2016-10-24] MEDS: Enoxaparin Sodium 40 MG/0.4 ML SYRINGE SC SCH (18:11)
[2016-10-24] MEDS ORDERED: Ketorolac Tromethamine 30 MG/ML VIAL IM PRN (19:52)
[2016-10-24] MEDS: Zolpidem Tartrate 5 MG TAB PO SCH (20:17)
[2016-10-24] MEDS: SUMAtriptan Succinate 6 MG/0.5 ML VIAL SC PRN (20:44)
[2016-10-25] MEDS: Cyclobenzaprine 10 MG TAB PO PRN ×2 (05:21→14:03)
[2016-10-25] MEDS: Diazepam 5 MG TAB PO PRN ×2 (05:21→14:03)
[2016-10-25] MEDS: HYDROcodone/Acetaminophen 10/325 mg Tablet PO PRN ×2 (05:21→14:03)
[2016-10-25] MEDS: LIOTHYRONINE SODIUM PO SCH (05:21)
[2016-10-25] MEDS: Levothyroxine Sodium 88 MCG TAB PO SCH (05:21)
[2016-10-25] MEDS: Gabapentin 300 MG CAP PO SCH ×3 (10:47→21:07)
[2016-10-25] MEDS: Ferrous Sulfate 325 MG TAB PO SCH (10:48)
[2016-10-25] MEDS: FLUoxetine HCl 10 MG CAP PO SCH (10:48)
[2016-10-25] MEDS: Multivitamin W/ Minerals 1 TAB PO SCH (10:48)
[2016-10-25] MEDS: Polyethylene Glycol 3350 17 GM Packet PO SCH (10:49)
[2016-10-25] MEDS: oxyCODONE ER 10 MG TAB PO SCH ×2 (10:49→21:06)
[2016-10-25] MEDS: oxyCODONE ER 20 MG TAB PO SCH ×2 (10:51→21:07)
[2016-10-25] MEDS: Docusate 100 MG CAP PO SCH (10:54)
[2016-10-25] MEDS: Cholecalciferol (Vitamin D3) 400 UNITS TAB PO SCH (14:04)
[2016-10-25] MEDS: Enoxaparin Sodium 40 MG/0.4 ML SYRINGE SC SCH (18:07)
[2016-10-25] MEDS: Zolpidem Tartrate 5 MG TAB PO SCH (21:07)
[2016-10-26] MEDS: Cyclobenzaprine 10 MG TAB PO PRN ×2 (00:08→15:19)
[2016-10-26] MEDS: HYDROcodone/Acetaminophen 10/325 mg Tablet PO PRN ×2 (00:08→15:20)
[2016-10-26] MEDS: Diazepam 5 MG TAB PO PRN ×2 (00:08→15:19)
[2016-10-26] MEDS: LIOTHYRONINE SODIUM PO SCH (05:45)
[2016-10-26] MEDS: Levothyroxine Sodium 88 MCG TAB PO SCH (05:46)
[2016-10-26] MEDS: Ferrous Sulfate 325 MG TAB PO SCH (09:44)
[2016-10-26] MEDS: Docusate 100 MG CAP PO SCH (09:44)
[2016-10-26] MEDS: FLUoxetine HCl 10 MG CAP PO SCH (09:45)
[2016-10-26] MEDS: Gabapentin 300 MG CAP PO SCH ×3 (09:45→22:17)
[2016-10-26] MEDS: oxyCODONE ER 20 MG TAB PO SCH ×2 (09:45→22:07)
[2016-10-26] MEDS: Multivitamin W/ Minerals 1 TAB PO SCH (09:45)
[2016-10-26] MEDS: Polyethylene Glycol 3350 17 GM Packet PO SCH (09:45)
[2016-10-26] MEDS: oxyCODONE ER 10 MG TAB PO SCH ×2 (09:47→22:08)
[2016-10-26] MEDS: Ondansetron ODT 4 MG TAB PO PRN (10:35)
[2016-10-26] MEDS ORDERED: Ketorolac Tromethamine 30 MG/ML VIAL ONE ×2 (11:47→11:50)
[2016-10-26] MEDS ORDERED: SUMAtriptan Succinate 6 MG/0.5 ML VIAL ONE (15:14)
[2016-10-26] MEDS: SUMAtriptan Succinate 6 MG/0.5 ML VIAL SC PRN (15:20)
[2016-10-26] MEDS: Enoxaparin Sodium 40 MG/0.4 ML SYRINGE SC SCH (19:07)
[2016-10-27] MEDS ORDERED: Zolpidem Tartrate 5 MG TAB PO SCH (00:30)
[2016-10-27] MEDS: Zolpidem Tartrate 5 MG TAB PO SCH (00:42)
[2016-10-27] MEDS: HYDROcodone/Acetaminophen 10/325 mg Tablet PO PRN ×3 (00:43→22:53)
[2016-10-27] MEDS: Cyclobenzaprine 10 MG TAB PO PRN ×3 (00:43→22:53)
[2016-10-27] MEDS: Diazepam 5 MG TAB PO PRN ×3 (00:43→22:54)
[2016-10-27] MEDS: LIOTHYRONINE SODIUM PO SCH (06:24)
[2016-10-27] MEDS: Levothyroxine Sodium 88 MCG TAB PO SCH (06:24)
[2016-10-27] MEDS: Docusate 100 MG CAP PO SCH (09:19)
[2016-10-27] MEDS: Gabapentin 300 MG CAP PO SCH ×3 (09:19→21:38)
[2016-10-27] MEDS: Polyethylene Glycol 3350 17 GM Packet PO SCH (09:19)
[2016-10-27] MEDS: Multivitamin W/ Minerals 1 TAB PO SCH (09:20)
[2016-10-27] MEDS: FLUoxetine HCl 10 MG CAP PO SCH (09:20)
[2016-10-27] MEDS: Ferrous Sulfate 325 MG TAB PO SCH (09:20)
[2016-10-27] MEDS: oxyCODONE ER 20 MG TAB PO SCH ×2 (09:21→21:40)
[2016-10-27] MEDS: oxyCODONE ER 10 MG TAB PO SCH ×2 (09:22→21:39)
[2016-10-27] MEDS ORDERED: SUMAtriptan Succinate 6 MG/0.5 ML VIAL ONE (11:04)
[2016-10-27] MEDS: SUMAtriptan Succinate 6 MG/0.5 ML VIAL SC PRN (11:09)
[2016-10-27] MEDS: Enoxaparin Sodium 40 MG/0.4 ML SYRINGE SC SCH (18:31)
[2016-10-27] MEDS: Zolpidem Tartrate 5 MG TAB PO PRN (22:54)
[2016-10-28] MEDS: LIOTHYRONINE SODIUM PO SCH (06:20)
[2016-10-28] MEDS: Diazepam 5 MG TAB PO PRN ×3 (06:22→22:59)
[2016-10-28] MEDS: Levothyroxine Sodium 88 MCG TAB PO SCH (06:22)
[2016-10-28] MEDS: Cyclobenzaprine 10 MG TAB PO PRN ×3 (06:22→22:59)
[2016-10-28] MEDS: HYDROcodone/Acetaminophen 10/325 mg Tablet PO PRN ×3 (06:22→22:59)
[2016-10-28] MEDS: oxyCODONE ER 10 MG TAB PO SCH ×2 (08:37→21:26)
[2016-10-28] MEDS: Gabapentin 300 MG CAP PO SCH ×3 (08:38→21:25)
[2016-10-28] MEDS: Multivitamin W/ Minerals 1 TAB PO SCH (08:38)
[2016-10-28] MEDS: Ferrous Sulfate 325 MG TAB PO SCH (08:38)
[2016-10-28] MEDS: FLUoxetine HCl 10 MG CAP PO SCH (08:39)
[2016-10-28] MEDS: oxyCODONE ER 20 MG TAB PO SCH ×2 (08:39→21:27)
[2016-10-28] MEDS: Polyethylene Glycol 3350 17 GM Packet PO SCH (09:00)
[2016-10-28] MEDS: Docusate 100 MG CAP PO SCH (09:01)
[2016-10-28] MEDS ORDERED: SUMAtriptan Succinate 6 MG/0.5 ML VIAL ONE (09:33)
[2016-10-28] MEDS: SUMAtriptan Succinate 6 MG/0.5 ML VIAL SC PRN (09:46)
[2016-10-28] MEDS: Ondansetron ODT 4 MG TAB PO PRN (09:54)
[2016-10-28] MEDS: Enoxaparin Sodium 40 MG/0.4 ML SYRINGE SC SCH (18:08)
[2016-10-28] MEDS: Zolpidem Tartrate 5 MG TAB PO PRN (21:28)
[2016-10-29] MEDS: Levothyroxine Sodium 88 MCG TAB PO SCH (06:30)
[2016-10-29] MEDS: LIOTHYRONINE SODIUM PO SCH (06:30)
[2016-10-29] MEDS: oxyCODONE ER 20 MG TAB PO SCH ×2 (10:14→22:07)
[2016-10-29] MEDS: oxyCODONE ER 10 MG TAB PO SCH ×2 (10:16→22:06)
[2016-10-29] MEDS: FLUoxetine HCl 10 MG CAP PO SCH (10:17)
[2016-10-29] MEDS: Gabapentin 300 MG CAP PO SCH ×3 (10:18→22:05)
[2016-10-29] MEDS: Ferrous Sulfate 325 MG TAB PO SCH (10:19)
[2016-10-29] MEDS: Multivitamin W/ Minerals 1 TAB PO SCH (10:19)
[2016-10-29] MEDS: Docusate 100 MG CAP PO SCH (10:20)
[2016-10-29] MEDS: Polyethylene Glycol 3350 17 GM Packet PO SCH (10:22)
[2016-10-29] MEDS ORDERED: Furosemide 20 MG TAB PO SCH (10:30)
[2016-10-29] MEDS ORDERED: SUMAtriptan Succinate 6 MG/0.5 ML VIAL ONE (13:53)
[2016-10-29] MEDS: SUMAtriptan Succinate 6 MG/0.5 ML VIAL SC PRN (13:57)
[2016-10-29] MEDS: Cyclobenzaprine 10 MG TAB PO PRN (15:35)
[2016-10-29] MEDS: Diazepam 5 MG TAB PO PRN (15:35)
[2016-10-29] MEDS: HYDROcodone/Acetaminophen 10/325 mg Tablet PO PRN (15:36)
[2016-10-29] MEDS: Enoxaparin Sodium 40 MG/0.4 ML SYRINGE SC SCH (18:33)
[2016-10-29] MEDS: Zolpidem Tartrate 5 MG TAB PO PRN (22:05)
[2016-10-30] MEDS: Cyclobenzaprine 10 MG TAB PO PRN ×2 (01:18→11:39)
[2016-10-30] MEDS: HYDROcodone/Acetaminophen 10/325 mg Tablet PO PRN ×2 (01:19→11:39)
[2016-10-30] MEDS: Diazepam 5 MG TAB PO PRN ×2 (01:19→11:39)
[2016-10-30] MEDS: Levothyroxine Sodium 88 MCG TAB PO SCH (05:59)
[2016-10-30] MEDS: LIOTHYRONINE SODIUM PO SCH (05:59)
[2016-10-30] MEDS: Docusate 100 MG CAP PO SCH (08:39)
[2016-10-30] MEDS: FLUoxetine HCl 10 MG CAP PO SCH (08:39)
[2016-10-30] MEDS: Ferrous Sulfate 325 MG TAB PO SCH (08:39)
[2016-10-30] MEDS: Furosemide 20 MG TAB PO SCH (08:40)
[2016-10-30] MEDS: Multivitamin W/ Minerals 1 TAB PO SCH (08:41)
[2016-10-30] MEDS: Gabapentin 300 MG CAP PO SCH ×3 (08:41→21:19)
[2016-10-30] MEDS: Polyethylene Glycol 3350 17 GM Packet PO SCH (08:42)
[2016-10-30] MEDS: oxyCODONE ER 20 MG TAB PO SCH ×2 (08:43→21:19)
[2016-10-30] MEDS: oxyCODONE ER 10 MG TAB PO SCH ×2 (08:44→21:20)
[2016-10-30] MEDS: Ondansetron ODT 4 MG TAB PO PRN (17:40)
[2016-10-30] MEDS: Enoxaparin Sodium 40 MG/0.4 ML SYRINGE SC SCH (17:41)
[2016-10-30] MEDS ORDERED: SUMAtriptan Succinate 6 MG/0.5 ML VIAL ONE (17:47)
[2016-10-30] MEDS: SUMAtriptan Succinate 6 MG/0.5 ML VIAL SC PRN (17:57)
[2016-10-31] MEDS: Zolpidem Tartrate 5 MG TAB PO PRN (00:55)
[2016-10-31] MEDS: Cyclobenzaprine 10 MG TAB PO PRN ×2 (00:56→12:35)
[2016-10-31] MEDS: HYDROcodone/Acetaminophen 10/325 mg Tablet PO PRN ×2 (00:56→12:35)
[2016-10-31] MEDS: Diazepam 5 MG TAB PO PRN ×2 (00:56→12:35)
[2016-10-31] MEDS: Levothyroxine Sodium 88 MCG TAB PO SCH (06:21)
[2016-10-31] MEDS: LIOTHYRONINE SODIUM PO SCH (06:21)
[2016-10-31] MEDS: Ferrous Sulfate 325 MG TAB PO SCH (09:30)
[2016-10-31] MEDS: Docusate 100 MG CAP PO SCH (09:30)
[2016-10-31] MEDS: FLUoxetine HCl 10 MG CAP PO SCH (09:30)
[2016-10-31] MEDS: Gabapentin 300 MG CAP PO SCH ×3 (09:31→22:03)
[2016-10-31] MEDS: Multivitamin W/ Minerals 1 TAB PO SCH (09:31)
[2016-10-31] MEDS: Furosemide 20 MG TAB PO SCH (09:31)
[2016-10-31] MEDS: oxyCODONE ER 20 MG TAB PO SCH ×2 (09:32→22:03)
[2016-10-31] MEDS: oxyCODONE ER 10 MG TAB PO SCH ×2 (09:33→22:04)
[2016-10-31] MEDS: Polyethylene Glycol 3350 17 GM Packet PO SCH (09:33)
[2016-10-31] MEDS: Ondansetron ODT 4 MG TAB PO PRN (12:35)
[2016-10-31] MEDS: Acetaminophen 500 MG TAB PO PRN (15:48)
[2016-10-31] MEDS: Enoxaparin Sodium 40 MG/0.4 ML SYRINGE SC SCH (18:08)
[2016-11-01] MEDS: HYDROcodone/Acetaminophen 10/325 mg Tablet PO PRN ×3 (01:56→23:48)
[2016-11-01] MEDS: Cyclobenzaprine 10 MG TAB PO PRN ×3 (01:56→23:48)
[2016-11-01] MEDS: Diazepam 5 MG TAB PO PRN ×3 (01:56→23:47)
[2016-11-01] MEDS ORDERED: SUMAtriptan Succinate 6 MG/0.5 ML VIAL ONE (04:36)
[2016-11-01] MEDS: SUMAtriptan Succinate 6 MG/0.5 ML VIAL SC PRN (04:40)
[2016-11-01] MEDS: Levothyroxine Sodium 88 MCG TAB PO SCH (05:35)
[2016-11-01] MEDS: LIOTHYRONINE SODIUM PO SCH (05:35)
[2016-11-01] MEDS: Polyethylene Glycol 3350 17 GM Packet PO SCH (09:01)
[2016-11-01] MEDS: FLUoxetine HCl 10 MG CAP PO SCH (09:02)
[2016-11-01] MEDS: Multivitamin W/ Minerals 1 TAB PO SCH (09:03)
[2016-11-01] MEDS: Furosemide 20 MG TAB PO SCH (09:04)
[2016-11-01] MEDS: Gabapentin 300 MG CAP PO SCH ×3 (09:04→21:18)
[2016-11-01] MEDS: oxyCODONE ER 10 MG TAB PO SCH ×2 (09:05→21:18)
[2016-11-01] MEDS: oxyCODONE ER 20 MG TAB PO SCH ×2 (09:06→21:20)
[2016-11-01] MEDS: Docusate 100 MG CAP PO SCH (09:07)
[2016-11-01] MEDS: Ferrous Sulfate 325 MG TAB PO SCH (09:07)
[2016-11-01] MEDS: Enoxaparin Sodium 40 MG/0.4 ML SYRINGE SC SCH (16:48)
[2016-11-01] MEDS: Zolpidem Tartrate 5 MG TAB PO PRN (21:18)
[2016-11-02] MEDS: LIOTHYRONINE SODIUM PO SCH (05:14)
[2016-11-02] MEDS: Levothyroxine Sodium 88 MCG TAB PO SCH (05:15)
[2016-11-02] MEDS: oxyCODONE ER 10 MG TAB PO SCH ×2 (09:43→21:56)
[2016-11-02] MEDS: Polyethylene Glycol 3350 17 GM Packet PO SCH (09:43)
[2016-11-02] MEDS: Gabapentin 300 MG CAP PO SCH ×3 (09:44→21:56)
[2016-11-02] MEDS: oxyCODONE ER 20 MG TAB PO SCH ×2 (09:47→21:57)
[2016-11-02] MEDS: Multivitamin W/ Minerals 1 TAB PO SCH (09:48)
[2016-11-02] MEDS: Ferrous Sulfate 325 MG TAB PO SCH (09:48)
[2016-11-02] MEDS: FLUoxetine HCl 10 MG CAP PO SCH (09:48)
[2016-11-02] MEDS: Furosemide 20 MG TAB PO SCH (09:49)
[2016-11-02] MEDS: Docusate 100 MG CAP PO SCH (09:49)
[2016-11-02] MEDS: HYDROcodone/Acetaminophen 10/325 mg Tablet PO PRN (13:15)
[2016-11-02] MEDS: Diazepam 5 MG TAB PO PRN (13:15)
[2016-11-02] MEDS: Cyclobenzaprine 10 MG TAB PO PRN (13:16)
[2016-11-02] MEDS: Enoxaparin Sodium 40 MG/0.4 ML SYRINGE SC SCH (17:25)
[2016-11-02] MEDS ORDERED: SUMAtriptan Succinate 6 MG/0.5 ML VIAL ONE (17:42)
[2016-11-02] MEDS: SUMAtriptan Succinate 6 MG/0.5 ML VIAL SC PRN (17:49)
[2016-11-02] MEDS: Zolpidem Tartrate 5 MG TAB PO PRN (21:56)
[2016-11-03] MEDS: LIOTHYRONINE SODIUM PO SCH (05:55)
[2016-11-03] MEDS: Levothyroxine Sodium 88 MCG TAB PO SCH (05:55)
[2016-11-03] MEDS: Polyethylene Glycol 3350 17 GM Packet PO SCH (09:31)
[2016-11-03] MEDS: FLUoxetine HCl 10 MG CAP PO SCH (09:32)
[2016-11-03] MEDS: oxyCODONE ER 10 MG TAB PO SCH ×2 (09:32→20:59)
[2016-11-03] MEDS: Multivitamin W/ Minerals 1 TAB PO SCH (09:33)
[2016-11-03] MEDS: Gabapentin 300 MG CAP PO SCH ×3 (09:33→20:59)
[2016-11-03] MEDS: Docusate 100 MG CAP PO SCH (09:34)
[2016-11-03] MEDS: Ferrous Sulfate 325 MG TAB PO SCH (09:34)
[2016-11-03] MEDS: oxyCODONE ER 20 MG TAB PO SCH ×2 (09:34→21:00)
[2016-11-03] MEDS: Furosemide 20 MG TAB PO SCH (09:35)
[2016-11-03] MEDS: SUMAtriptan Succinate 6 MG/0.5 ML VIAL SC PRN (10:38)
[2016-11-03] MEDS: HYDROcodone/Acetaminophen 10/325 mg Tablet PO PRN ×2 (12:43→23:20)
[2016-11-03] MEDS: Diazepam 5 MG TAB PO PRN ×2 (12:43→23:20)
[2016-11-03] MEDS: Cyclobenzaprine 10 MG TAB PO PRN ×2 (12:44→23:20)
[2016-11-03] MEDS: Enoxaparin Sodium 40 MG/0.4 ML SYRINGE SC SCH (17:43)
[2016-11-03] MEDS: Zolpidem Tartrate 5 MG TAB PO PRN (21:53)
[2016-11-04] MEDS: Levothyroxine Sodium 88 MCG TAB PO SCH (06:14)
[2016-11-04] MEDS: LIOTHYRONINE SODIUM PO SCH (06:14)
[2016-11-04] MEDS: Docusate 100 MG CAP PO SCH (10:55)
[2016-11-04] MEDS: FLUoxetine HCl 10 MG CAP PO SCH (10:55)
[2016-11-04] MEDS: Polyethylene Glycol 3350 17 GM Packet PO SCH (10:55)
[2016-11-04] MEDS: Gabapentin 300 MG CAP PO SCH ×3 (10:56→20:30)
[2016-11-04] MEDS: Furosemide 20 MG TAB PO SCH (10:56)
[2016-11-04] MEDS: Multivitamin W/ Minerals 1 TAB PO SCH (10:56)
[2016-11-04] MEDS: Ferrous Sulfate 325 MG TAB PO SCH (10:56)
[2016-11-04] MEDS: oxyCODONE ER 20 MG TAB PO SCH ×2 (10:57→20:29)
[2016-11-04] MEDS: oxyCODONE ER 10 MG TAB PO SCH ×2 (10:57→20:28)
[2016-11-04] MEDS ORDERED: Ketorolac Tromethamine 60 MG/2 ML VIAL IM PRN (14:03)
[2016-11-04] MEDS: Diazepam 5 MG TAB PO PRN ×2 (14:28→21:56)
[2016-11-04] MEDS: Cyclobenzaprine 10 MG TAB PO PRN ×2 (14:28→21:56)
[2016-11-04] MEDS: HYDROcodone/Acetaminophen 10/325 mg Tablet PO PRN ×2 (14:28→21:56)
[2016-11-04] MEDS: Enoxaparin Sodium 40 MG/0.4 ML SYRINGE SC SCH (19:17)
--- NOTE | 2016-11-04 20:13 | RAD ---
LUMBAR SPINE THREE VIEWS 11/04/16 Comparison is made with the prior study of 10/13/16. There does not appear to be any significant hoover ge in the interval. The anterior compression fracture of L2 is no different or more compressed than before. Posterior fusion with pedicle screws through L1 and L3 are noted as before. There does not a ppear to be any difference in the hardware. There is no disc space narrowing or new finding since th e prior exam. The SI joints are symmetrical. IMPRESSION: Old postop and L2 changes. The appearance is the same as last month. There has been no adverse larson e. POS: HOME
[2016-11-04] MEDS: MAXALT 10 MG PO PRN (20:30)
[2016-11-04] MEDS: Zolpidem Tartrate 5 MG TAB PO PRN (21:56)
[2016-11-05] MEDS: Levothyroxine Sodium 88 MCG TAB PO SCH (05:46)
[2016-11-05] MEDS: LIOTHYRONINE SODIUM PO SCH (05:46)
[2016-11-05] MEDS: Gabapentin 300 MG CAP PO SCH ×3 (08:34→20:52)
[2016-11-05] MEDS: FLUoxetine HCl 10 MG CAP PO SCH (08:34)
[2016-11-05] MEDS: Docusate 100 MG CAP PO SCH (08:34)
[2016-11-05] MEDS: Furosemide 20 MG TAB PO SCH (08:35)
[2016-11-05] MEDS: Multivitamin W/ Minerals 1 TAB PO SCH (08:35)
[2016-11-05] MEDS: Ferrous Sulfate 325 MG TAB PO SCH (08:35)
[2016-11-05] MEDS: Polyethylene Glycol 3350 17 GM Packet PO SCH (08:35)
[2016-11-05] MEDS: oxyCODONE ER 10 MG TAB PO SCH ×2 (08:36→20:53)
[2016-11-05] MEDS: oxyCODONE ER 20 MG TAB PO SCH ×2 (08:36→20:52)
[2016-11-05] MEDS: Diazepam 5 MG TAB PO PRN (13:31)
[2016-11-05] MEDS: HYDROcodone/Acetaminophen 10/325 mg Tablet PO PRN (13:31)
[2016-11-05] MEDS: Cyclobenzaprine 10 MG TAB PO PRN (13:32)
[2016-11-05] MEDS: MAXALT 10 MG PO PRN (13:40)
[2016-11-05] MEDS: Enoxaparin Sodium 40 MG/0.4 ML SYRINGE SC SCH (18:23)
[2016-11-06] MEDS: Cyclobenzaprine 10 MG TAB PO PRN ×2 (00:33→15:20)
[2016-11-06] MEDS: Diazepam 5 MG TAB PO PRN ×2 (00:34→15:20)
[2016-11-06] MEDS: HYDROcodone/Acetaminophen 10/325 mg Tablet PO PRN ×2 (00:34→15:20)
[2016-11-06] MEDS: Zolpidem Tartrate 5 MG TAB PO PRN ×2 (00:34→20:57)
[2016-11-06] MEDS: Levothyroxine Sodium 88 MCG TAB PO SCH (05:44)
[2016-11-06] MEDS: Docusate 100 MG CAP PO SCH (05:44)
[2016-11-06] MEDS: LIOTHYRONINE SODIUM PO SCH (05:45)
[2016-11-06] MEDS: MAXALT 10 MG PO PRN (05:50)
[2016-11-06] MEDS: FLUoxetine HCl 10 MG CAP PO SCH (09:15)
[2016-11-06] MEDS: Furosemide 20 MG TAB PO SCH (09:16)
[2016-11-06] MEDS: Gabapentin 300 MG CAP PO SCH ×3 (09:16→20:53)
[2016-11-06] MEDS: Multivitamin W/ Minerals 1 TAB PO SCH (09:17)
[2016-11-06] MEDS: oxyCODONE ER 20 MG TAB PO SCH ×2 (09:17→20:52)
[2016-11-06] MEDS: Ferrous Sulfate 325 MG TAB PO SCH (09:17)
[2016-11-06] MEDS: oxyCODONE ER 10 MG TAB PO SCH ×2 (09:18→20:51)
[2016-11-06] MEDS: Polyethylene Glycol 3350 17 GM Packet PO SCH (09:23)
[2016-11-06] MEDS: Enoxaparin Sodium 40 MG/0.4 ML SYRINGE SC SCH (18:15)
[2016-11-07] MEDS: Cyclobenzaprine 10 MG TAB PO PRN ×2 (00:28→12:54)
[2016-11-07] MEDS: Diazepam 5 MG TAB PO PRN ×2 (00:28→12:54)
[2016-11-07] MEDS: HYDROcodone/Acetaminophen 10/325 mg Tablet PO PRN ×2 (00:28→12:54)
[2016-11-07] MEDS: Levothyroxine Sodium 88 MCG TAB PO SCH (06:26)
[2016-11-07] MEDS: LIOTHYRONINE SODIUM PO SCH (06:31)
[2016-11-07] MEDS: Gabapentin 300 MG CAP PO SCH ×3 (09:24→21:31)
[2016-11-07] MEDS: Docusate 100 MG CAP PO SCH (09:25)
[2016-11-07] MEDS: FLUoxetine HCl 10 MG CAP PO SCH (09:25)
[2016-11-07] MEDS: Furosemide 20 MG TAB PO SCH (09:25)
[2016-11-07] MEDS: Multivitamin W/ Minerals 1 TAB PO SCH (09:26)
[2016-11-07] MEDS: Ferrous Sulfate 325 MG TAB PO SCH (09:27)
[2016-11-07] MEDS: Polyethylene Glycol 3350 17 GM Packet PO SCH (09:27)
[2016-11-07] MEDS: oxyCODONE ER 10 MG TAB PO SCH ×2 (09:27→21:32)
[2016-11-07] MEDS: oxyCODONE ER 20 MG TAB PO SCH ×2 (09:28→21:31)
[2016-11-07] MEDS: Ondansetron ODT 4 MG TAB PO PRN (13:11)
[2016-11-07] MEDS: MAXALT 10 MG PO PRN (13:11)
[2016-11-07] MEDS: Enoxaparin Sodium 40 MG/0.4 ML SYRINGE SC SCH (19:50)
[2016-11-08] MEDS: Cyclobenzaprine 10 MG TAB PO PRN ×2 (02:41→12:11)
[2016-11-08] MEDS: HYDROcodone/Acetaminophen 10/325 mg Tablet PO PRN ×2 (02:42→12:11)
[2016-11-08] MEDS: Diazepam 5 MG TAB PO PRN ×2 (02:42→12:11)
[2016-11-08] MEDS: Levothyroxine Sodium 88 MCG TAB PO SCH (06:01)
[2016-11-08] MEDS: LIOTHYRONINE SODIUM PO SCH (06:03)
[2016-11-08] MEDS: FLUoxetine HCl 10 MG CAP PO SCH (09:11)
[2016-11-08] MEDS: Ferrous Sulfate 325 MG TAB PO SCH (09:11)
[2016-11-08] MEDS: Docusate 100 MG CAP PO SCH (09:12)
[2016-11-08] MEDS: Furosemide 20 MG TAB PO SCH (09:13)
[2016-11-08] MEDS: Gabapentin 300 MG CAP PO SCH ×3 (09:13→20:22)
[2016-11-08] MEDS: Multivitamin W/ Minerals 1 TAB PO SCH (09:14)
[2016-11-08] MEDS: oxyCODONE ER 10 MG TAB PO SCH ×2 (09:14→20:22)
[2016-11-08] MEDS: oxyCODONE ER 20 MG TAB PO SCH ×2 (09:15→20:23)
[2016-11-08] MEDS: Polyethylene Glycol 3350 17 GM Packet PO SCH (09:16)
[2016-11-08] MEDS: Enoxaparin Sodium 40 MG/0.4 ML SYRINGE SC SCH (17:48)
[2016-11-08] MEDS: MAXALT 10 MG PO PRN (20:24)
[2016-11-08] MEDS: Zolpidem Tartrate 5 MG TAB PO PRN (22:12)
[2016-11-09] MEDS: Cyclobenzaprine 10 MG TAB PO PRN ×3 (03:15→23:11)
[2016-11-09] MEDS: HYDROcodone/Acetaminophen 10/325 mg Tablet PO PRN ×3 (03:15→23:11)
[2016-11-09] MEDS: Diazepam 5 MG TAB PO PRN ×3 (03:15→23:11)
[2016-11-09] MEDS: LIOTHYRONINE SODIUM PO SCH (06:00)
[2016-11-09] MEDS: Levothyroxine Sodium 88 MCG TAB PO SCH (06:00)
[2016-11-09] MEDS: Polyethylene Glycol 3350 17 GM Packet PO SCH (09:30)
[2016-11-09] MEDS: oxyCODONE ER 10 MG TAB PO SCH ×2 (09:30→20:43)
[2016-11-09] MEDS: oxyCODONE ER 20 MG TAB PO SCH ×2 (09:30→20:44)
[2016-11-09] MEDS: Docusate 100 MG CAP PO SCH (09:30)
[2016-11-09] MEDS: Multivitamin W/ Minerals 1 TAB PO SCH (09:30)
[2016-11-09] MEDS: Gabapentin 300 MG CAP PO SCH ×3 (09:30→20:43)
[2016-11-09] MEDS: Furosemide 20 MG TAB PO SCH (09:30)
[2016-11-09] MEDS: FLUoxetine HCl 10 MG CAP PO SCH (09:30)
[2016-11-09] MEDS: Ferrous Sulfate 325 MG TAB PO SCH (09:30)
[2016-11-09] MEDS: Enoxaparin Sodium 40 MG/0.4 ML SYRINGE SC SCH (19:16)
[2016-11-09] MEDS: Zolpidem Tartrate 5 MG TAB PO PRN (23:11)
[2016-11-10] MEDS: Levothyroxine Sodium 88 MCG TAB PO SCH (05:40)
[2016-11-10] MEDS: LIOTHYRONINE SODIUM PO SCH (05:40)
[2016-11-10] MEDS: Polyethylene Glycol 3350 17 GM Packet PO SCH (09:25)
[2016-11-10] MEDS: Gabapentin 300 MG CAP PO SCH ×3 (09:25→21:14)
[2016-11-10] MEDS: Furosemide 20 MG TAB PO SCH (09:26)
[2016-11-10] MEDS: Multivitamin W/ Minerals 1 TAB PO SCH (09:26)
[2016-11-10] MEDS: Ferrous Sulfate 325 MG TAB PO SCH (09:26)
[2016-11-10] MEDS: FLUoxetine HCl 10 MG CAP PO SCH (09:26)
[2016-11-10] MEDS: Docusate 100 MG CAP PO SCH (09:26)
[2016-11-10] MEDS: oxyCODONE ER 10 MG TAB PO SCH ×2 (09:27→21:14)
[2016-11-10] MEDS: oxyCODONE ER 20 MG TAB PO SCH ×2 (09:27→21:14)
[2016-11-10] MEDS: HYDROcodone/Acetaminophen 10/325 mg Tablet PO PRN ×2 (13:34→23:06)
[2016-11-10] MEDS: Cyclobenzaprine 10 MG TAB PO PRN ×2 (13:34→23:06)
[2016-11-10] MEDS: Diazepam 5 MG TAB PO PRN ×2 (13:34→23:06)
[2016-11-10] MEDS: Enoxaparin Sodium 40 MG/0.4 ML SYRINGE SC SCH (18:36)
[2016-11-10] MEDS: Zolpidem Tartrate 5 MG TAB PO PRN (23:06)
[2016-11-11] MEDS: LIOTHYRONINE SODIUM PO SCH (05:36)
[2016-11-11] MEDS: Levothyroxine Sodium 88 MCG TAB PO SCH (05:36)
[2016-11-11] MEDS: FLUoxetine HCl 10 MG CAP PO SCH (09:59)
[2016-11-11] MEDS: Gabapentin 300 MG CAP PO SCH ×3 (09:59→21:38)
[2016-11-11] MEDS: Multivitamin W/ Minerals 1 TAB PO SCH (09:59)
[2016-11-11] MEDS: Polyethylene Glycol 3350 17 GM Packet PO SCH (09:59)
[2016-11-11] MEDS: oxyCODONE ER 10 MG TAB PO SCH ×2 (10:00→21:41)
[2016-11-11] MEDS: Furosemide 20 MG TAB PO SCH (10:00)
[2016-11-11] MEDS: Ferrous Sulfate 325 MG TAB PO SCH (10:00)
[2016-11-11] MEDS: Docusate 100 MG CAP PO SCH (10:00)
[2016-11-11] MEDS: oxyCODONE ER 20 MG TAB PO SCH ×2 (10:01→21:38)
[2016-11-11] MEDS: Diazepam 5 MG TAB PO PRN ×2 (13:47→22:59)
[2016-11-11] MEDS: Cyclobenzaprine 10 MG TAB PO PRN ×2 (13:47→22:59)
[2016-11-11] MEDS: HYDROcodone/Acetaminophen 10/325 mg Tablet PO PRN ×2 (13:47→22:59)
[2016-11-11] MEDS: Enoxaparin Sodium 40 MG/0.4 ML SYRINGE SC SCH (18:02)
[2016-11-11] MEDS: Zolpidem Tartrate 5 MG TAB PO PRN (22:58)
[2016-11-12] MEDS: Levothyroxine Sodium 88 MCG TAB PO SCH (05:55)
[2016-11-12] MEDS: LIOTHYRONINE SODIUM PO SCH (05:55)
[2016-11-12] MEDS: oxyCODONE ER 20 MG TAB PO SCH ×2 (08:31→21:04)
[2016-11-12] MEDS: Docusate 100 MG CAP PO SCH (08:31)
[2016-11-12] MEDS: Multivitamin W/ Minerals 1 TAB PO SCH (08:32)
[2016-11-12] MEDS: Gabapentin 300 MG CAP PO SCH ×3 (08:32→21:08)
[2016-11-12] MEDS: FLUoxetine HCl 10 MG CAP PO SCH (08:32)
[2016-11-12] MEDS: oxyCODONE ER 10 MG TAB PO SCH ×2 (08:33→21:06)
[2016-11-12] MEDS: Ferrous Sulfate 325 MG TAB PO SCH (08:33)
[2016-11-12] MEDS: Furosemide 20 MG TAB PO SCH (08:33)
[2016-11-12] MEDS: Polyethylene Glycol 3350 17 GM Packet PO SCH (08:34)
[2016-11-12] MEDS: Cyclobenzaprine 10 MG TAB PO PRN ×2 (13:49→23:23)
[2016-11-12] MEDS: Diazepam 5 MG TAB PO PRN ×2 (13:49→23:24)
[2016-11-12] MEDS: HYDROcodone/Acetaminophen 10/325 mg Tablet PO PRN ×2 (13:50→23:24)
[2016-11-12] MEDS: Enoxaparin Sodium 40 MG/0.4 ML SYRINGE SC SCH (17:46)
[2016-11-12] MEDS: Zolpidem Tartrate 5 MG TAB PO PRN (23:24)
[2016-11-13] MEDS: Levothyroxine Sodium 88 MCG TAB PO SCH (05:35)
[2016-11-13] MEDS: LIOTHYRONINE SODIUM PO SCH (05:35)
[2016-11-13] MEDS: Polyethylene Glycol 3350 17 GM Packet PO SCH (08:38)
[2016-11-13] MEDS: Multivitamin W/ Minerals 1 TAB PO SCH (08:39)
[2016-11-13] MEDS: Gabapentin 300 MG CAP PO SCH ×3 (08:39→20:41)
[2016-11-13] MEDS: Docusate 100 MG CAP PO SCH (08:39)
[2016-11-13] MEDS: oxyCODONE ER 20 MG TAB PO SCH ×2 (08:40→20:42)
[2016-11-13] MEDS: Ferrous Sulfate 325 MG TAB PO SCH (08:40)
[2016-11-13] MEDS: Furosemide 20 MG TAB PO SCH (08:40)
[2016-11-13] MEDS: FLUoxetine HCl 10 MG CAP PO SCH (08:40)
[2016-11-13] MEDS: oxyCODONE ER 10 MG TAB PO SCH ×2 (08:41→20:42)
[2016-11-13] MEDS: HYDROcodone/Acetaminophen 10/325 mg Tablet PO PRN (12:55)
[2016-11-13] MEDS: Diazepam 5 MG TAB PO PRN (12:55)
[2016-11-13] MEDS: Cyclobenzaprine 10 MG TAB PO PRN (12:55)
[2016-11-13] MEDS: Enoxaparin Sodium 40 MG/0.4 ML SYRINGE SC SCH (17:15)
[2016-11-14] MEDS: HYDROcodone/Acetaminophen 10/325 mg Tablet PO PRN ×2 (00:47→12:31)
[2016-11-14] MEDS: Cyclobenzaprine 10 MG TAB PO PRN ×2 (00:47→12:31)
[2016-11-14] MEDS: Zolpidem Tartrate 5 MG TAB PO PRN (00:47)
[2016-11-14] MEDS: Diazepam 5 MG TAB PO PRN ×2 (00:47→12:31)
[2016-11-14] MEDS: LIOTHYRONINE SODIUM PO SCH (05:12)
[2016-11-14] MEDS: Levothyroxine Sodium 88 MCG TAB PO SCH (05:12)
[2016-11-14] MEDS: Polyethylene Glycol 3350 17 GM Packet PO SCH (08:08)
[2016-11-14] MEDS: Ferrous Sulfate 325 MG TAB PO SCH (08:10)
[2016-11-14] MEDS: Docusate 100 MG CAP PO SCH (08:10)
[2016-11-14] MEDS: FLUoxetine HCl 10 MG CAP PO SCH (08:10)
[2016-11-14] MEDS: Multivitamin W/ Minerals 1 TAB PO SCH (08:11)
[2016-11-14] MEDS: Gabapentin 300 MG CAP PO SCH ×3 (08:12→21:01)
[2016-11-14] MEDS: Furosemide 20 MG TAB PO SCH (08:13)
[2016-11-14] MEDS: oxyCODONE ER 20 MG TAB PO SCH ×2 (08:13→21:02)
[2016-11-14] MEDS: oxyCODONE ER 10 MG TAB PO SCH ×2 (08:14→21:02)
[2016-11-14] MEDS: Ondansetron ODT 4 MG TAB PO PRN (10:04)
[2016-11-14] MEDS: MAXALT 10 MG PO PRN ×2 (10:17→14:03)
[2016-11-14] MEDS ORDERED: Loratadine 10 MG TAB PO SCH (13:45)
[2016-11-14] MEDS: Enoxaparin Sodium 40 MG/0.4 ML SYRINGE SC SCH (17:58)
[2016-11-15] MEDS: Diazepam 5 MG TAB PO PRN ×2 (00:07→11:34)
[2016-11-15] MEDS: Zolpidem Tartrate 5 MG TAB PO PRN (00:08)
[2016-11-15] MEDS: HYDROcodone/Acetaminophen 10/325 mg Tablet PO PRN ×2 (00:08→11:33)
[2016-11-15] MEDS: Cyclobenzaprine 10 MG TAB PO PRN ×2 (00:08→11:35)
[2016-11-15] MEDS: LIOTHYRONINE SODIUM PO SCH (06:09)
[2016-11-15] MEDS: Levothyroxine Sodium 88 MCG TAB PO SCH (06:09)
[2016-11-15] MEDS: Polyethylene Glycol 3350 17 GM Packet PO SCH (09:20)
[2016-11-15] MEDS: Docusate 100 MG CAP PO SCH (09:22)
[2016-11-15] MEDS: Ferrous Sulfate 325 MG TAB PO SCH (09:22)
[2016-11-15] MEDS: FLUoxetine HCl 10 MG CAP PO SCH (09:23)
[2016-11-15] MEDS: Multivitamin W/ Minerals 1 TAB PO SCH (09:23)
[2016-11-15] MEDS: Furosemide 20 MG TAB PO SCH (09:24)
[2016-11-15] MEDS: Loratadine 10 MG TAB PO SCH (09:25)
[2016-11-15] MEDS: Gabapentin 300 MG CAP PO SCH ×3 (09:25→21:38)
[2016-11-15] MEDS: oxyCODONE ER 20 MG TAB PO SCH ×2 (09:26→21:40)
[2016-11-15] MEDS: oxyCODONE ER 10 MG TAB PO SCH ×2 (09:27→21:39)
[2016-11-15] MEDS: Enoxaparin Sodium 40 MG/0.4 ML SYRINGE SC SCH (19:34)
[2016-11-16] MEDS: Diazepam 5 MG TAB PO PRN ×2 (00:55→13:26)
[2016-11-16] MEDS: HYDROcodone/Acetaminophen 10/325 mg Tablet PO PRN ×2 (00:55→13:25)
[2016-11-16] MEDS: Cyclobenzaprine 10 MG TAB PO PRN ×2 (00:55→13:26)
[2016-11-16] MEDS: LIOTHYRONINE SODIUM PO SCH (05:39)
[2016-11-16] MEDS: Levothyroxine Sodium 88 MCG TAB PO SCH (05:39)
[2016-11-16 06:53] VITALS: BP 118/72; TEMP 98.3
[2016-11-16] MEDS: Polyethylene Glycol 3350 17 GM Packet PO SCH (10:30)
[2016-11-16] MEDS: FLUoxetine HCl 10 MG CAP PO SCH (10:31)
[2016-11-16] MEDS: Ferrous Sulfate 325 MG TAB PO SCH (10:31)
[2016-11-16] MEDS: Furosemide 20 MG TAB PO SCH (10:32)
[2016-11-16] MEDS: Gabapentin 300 MG CAP PO SCH ×2 (10:32→16:38)
[2016-11-16] MEDS: Multivitamin W/ Minerals 1 TAB PO SCH (10:32)
[2016-11-16] MEDS: Docusate 100 MG CAP PO SCH (10:32)
[2016-11-16] MEDS: Loratadine 10 MG TAB PO SCH (10:32)
[2016-11-16] MEDS: oxyCODONE ER 10 MG TAB PO SCH (10:33)
[2016-11-16] MEDS: oxyCODONE ER 20 MG TAB PO SCH (10:33)
[2016-11-16] MEDS: Ondansetron ODT 4 MG TAB PO PRN (11:00)
== END 2016-11-16 15:50 | disposition home or self-care (01) | DRG 560 ==
LOC: BURMED 09-23 18:02
PROVIDERS: ADMIT Family Medicine; ATTEND Family Medicine
DX: S32.021D Stable burst fracture of second lumbar vertebra, subsequent encounter for fracture with routine healing (principal); R29.5 Transient paralysis; I95.9 Hypotension, unspecified; K56.0 Paralytic ileus; E16.1 Other hypoglycemia; K95.89 Other complications of other bariatric procedure; V49.9XXD Car occupant (driver) (passenger) injured in unspecified traffic accident, subsequent encounter; K21.9 Gastro-esophageal reflux disease without esophagitis; Z88.0 Allergy status to penicillin; Z98.84 Bariatric surgery status; M48.06 Spinal stenosis, lumbar region; S34.102D Unspecified injury to L2 level of lumbar spinal cord, subsequent encounter; N31.8 Other neuromuscular dysfunction of bladder; R00.0 Tachycardia, unspecified; S73.101A Unspecified sprain of right hip, initial encounter; X58.XXXA Exposure to other specified factors, initial encounter; K91.1 Postgastric surgery syndromes; Y83.8 Other surgical procedures as the cause of abnormal reaction of the patient, or of later complication, without mention of misadventure at the time of the procedure; F32.9 Major depressive disorder, single episode, unspecified; G47.00 Insomnia, unspecified; M50.10 Cervical disc disorder with radiculopathy, unspecified cervical region; G43.919 Migraine, unspecified, intractable, without status migrainosus; F41.1 Generalized anxiety disorder
CPT/HCPCS: 36415; 36416; 72100; 80053; 85025; A4216; G0283-GO; G8978-GP-CM; G8979-GP-CK; G8987-GO-CM; G8988-GO-CJ; J1650; J1885; J3030; Q0162

== ENCOUNTER 2016-11-30 15:06 | Outpatient (CLI) | payer OTHER ==
--- NOTE | 2016-11-30 21:23 | RAD ---
LUMBAR SPINE THREE VIEWS 11/30/16 Comparison is made with the prior study of 11/04/16. The posterior fusion of L1 through L3 with the intervening compression fracture of the L2 vertebral body is again noted. There has been no adverse change in alignment of the spine. The L2 vertebral ragini dy is perhaps slightly more sclerotic indicating some degree of healing may be occurring. The anteri or loss of height of L2 has not changed over the interval. The degree of compression is virtually id entical. There is a little disc space narrowing at L1-L2, but the other disc spaces seem normal in h eight. IMPRESSION: 1. No adverse change since the October study. 2. Slight L1-L2 disc space narrowing, not unlike the prior study. POS: HOME
== END 2016-11-30 15:07 | disposition home or self-care (01) ==
LOC: BURRAD 15:06
PROVIDERS: ATTEND Neurological Surgery
DX: M48.56XA Collapsed vertebra, not elsewhere classified, lumbar region, initial encounter for fracture (principal)
CPT/HCPCS: 72100